=== PATIENT | male | born 1950 | race Caucasian/White ===

== ENCOUNTER 2016-08-19 07:51 | Emergency (ER) | payer OTHER, MEDICARE ==
[~2016-08-19] VITALS: Ht 180.3 cm; Wt 133.8 kg
[~2016-08-19 07:51] MED LIST: ACTOS15 MG PO; ADVIL200 MG PO; AMARYL4 MG PO; ASPIRIN EC325 MG PO; BYDUREON2 MG SC; COUMADIN5 M2 PO; DIOVAN 160 MG160 MG PO; DULOXETINE30 MG PO; GABAPENTIN300 M2 PO; GLUMETZA500 MG PO; HUMALOG 100U100 U/ML SC; IRON SUPPLEMEN325 MG PO; LANTUS INS100 UNITS/ SC; LANTUS100 U/ML SC; LEVOTHYROXINE0.15 MG PO; METFORMIN500 MG PO; NEURONTIN300 MG PO; OMEPRAZOLE DR20 MG PO; PERCOCET 5-3251 EACH PO; SYMBICORT 80/4.1 PUF INH; SYNTHROID112 MCG PO; VENTOLIN1 PUF INH; VITAMIN D50000 IU PO; XANAX1 MG PO
--- NOTE | 2016-08-19 08:26 | ED GENERAL ADULT ---
History of Present Illness General Chief Complaint: General Adult Stated Complaint: BIBA LEG EDEMA, WEAKNESS Source: patient, old records Exam Limitations: poor historian Vital Signs & Intake/Output Vital Signs & Intake/Output Vital Signs Date Time Temp Pulse Resp B/P B/P Pulse O2 O2 Flow FiO2 Mean Ox Delivery Rate 08/19 1133 98.2 88 19 112/68 98 Room Air 08/19 1044 Room Air 08/19 0802 97.6 87 18 101/65 100 Room Air Allergies Coded Allergies: NO KNOWN ALLERGIES (11/02/15) Reconcile Medications Gabapentin 300 MG CAPSULE 1 CAP PO TID NERVE PAIN (Reported) Levothyroxine Sodium (Synthroid) 112 MCG TABLET 1 TAB PO DAILY THYROID ( Reported) Warfarin Sodium (Coumadin) 5 MG TABLET 1 TAB PO DAILY anticoagulation INR goal 2-3 Triage Note: PT BIBA FOR WORSENING BILATERAL LEG SWELLING AND GENERAL WEAKNESS X 2 WEEKS. PT APPEARS JAUNDICE IN TRIAGE, DENIES CP, SOB. LEGS WEEPING IN TRIAGE, BANDAGE PLACED. Triage Nurses Notes Reviewed? yes Onset: Abrupt Duration: week(s):, constant, getting worse Timing: recent history Injury Environment: home No Modifying Factors: none HPI: 66-year-old male with a history of noncompliance comes into emergency room for evaluation of leg swelling bilaterally that been getting progressively worse over the past 2 weeks. He denies any chest pain shortness of breath. Patient reports that he is supposedly a procedure on his abdomen tomorrow by Dr. guerin. Patient reports she's had increased weakness. The swelling is getting worse. He reports that he comes in because he can no longer tolerate it. Denies any alcohol or drug use. Patient is followed up with Dr. Sanford in the past. Denies any other associated symptoms. (BLAKE PATRICK) Past History Travel History Traveled to [place] past 21 day No Medical History Any Pertinent Medical History? 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 History of MRSA: No History of VRE: No History of CDIFF: No Pneumonia Vaccine: 07/16/15 Influenza Vaccine: 12/24/08 Surgical History Surgical History: LEFT ROTATOR CUFF GASTRIC BYPASS, CHOLECYSTECTOMY Psychosocial History Who do you live with Patient/Self Services at Home None What is your primary language South Sudanese Tobacco Use: Never used ETOH Use: alcoholic Illicit Drug Use: denies illicit drug use Family History Family History, If Any: FATHER FH: myocardial infarction Hx Contributory? No (BLAKE PATRICK) Review of Systems Review of Systems Constitutional: Reports: no symptoms. EENTM: Reports: no symptoms. Respiratory: Reports: no symptoms. Cardiovascular: Reports: no symptoms. GI: Reports: no symptoms. Genitourinary: Reports: no symptoms. Musculoskeletal: Reports: see HPI. Skin: Reports: see HPI. Neurological/Psychological: Reports: no symptoms. Hematologic/Endocrine: Reports: no symptoms. Immunologic/Allergic: Reports: no symptoms. All Other Systems: Reviewed and Negative (BLAKE PATRICK) Physical Exam Physical Exam General Appearance: well developed/nourished, no apparent distress, alert, awake Head: atraumatic, normal appearance Eyes: Bilateral: normal appearance. Ears, Nose, Throat: normal ENT inspection, hearing grossly normal Neck: normal inspection Respiratory: no respiratory distress Cardiovascular: regular rate/rhythm Gastrointestinal: soft Back: normal range of motion Extremities: 3+ pitting edema Neurologic/Psych: awake, alert, oriented x 3 Skin: jaundice Core Measures ACS in differential dx? No CVA/TIA Diagnosis: No Severe Sepsis Present: No Septic Shock Present: No (BLAKE PATRICK) Progress Differential Diagnoses I considered the following diagnoses in my evaluation of the patient: Liver cirrhosis, renal failure, hypoalbuminemia, CHF, DVT, cellulitis, venous stasis, Plan of Care: Orders Procedure Date/time Status Add-on Test (ER Only) 08/19 1034 Active HEPATITIS PANEL 08/19 0850 Complete Add-on Test (ER Only) 08/19 0848 Active TROPONIN LEVEL 08/19 0832 Complete PARTIAL THROMBOPLASTIN TIME 08/19 0832 Complete PROTHROMBIN TIME 08/19 0832 Complete MAGNESIUM 08/19 0832 Complete FOLIC ACID 08/19 0832 Complete DIRECT BILIRUBIN 06/20 0832 Complete COMPREHENSIVE METABOLIC PANEL 08/20 831 Complete CBC WITHOUT DIFFERENTIAL 08/20 831 Complete B-TYPE NATRIURETIC PEP (BNP) 08/20 831 Complete VITAMIN B12 08/20 831 Complete EKG 08/20 831 Active Laboratory Tests 08/19/16 0850: Anion Gap 6, Estimated GFR > 60, BUN/Creatinine Ratio 12.2, Glucose 79, Calcium 7.8 L, Magnesium 1.8, Total Bilirubin 4.8 H, Direct Bilirubin 1.8 H, AST 61 H, ALT 30, Alkaline Phosphatase 109, Troponin I < 0.01, Fyx-Y-Ulpqcphstad Pept 746 H, Total Protein 6.1 L, Albumin 2.1 L, Globulin 4.0, Albumin/Globulin Ratio 0.5 L, Vitamin B12 > 1000 H, Folate 1.6 L, PT 20.9 H, INR 2.00 H, APTT 43 H, CBC w Diff NO MAN DIFF REQ, RBC 3.03 L, MCV 110.2 H, MCH 36.9 H, RDW 19.0 H, MPV 8.1, Gran % 82.4 H, Lymphocytes % 11.8 L, Monocytes % 5.0, Eosinophils % 0.5, Basophils % 0.3, Absolute Granulocytes 6.3, Absolute Lymphocytes 0.9 L, Absolute Monocytes 0.4, Absolute Eosinophils 0, Absolute Basophils 0, PUBS MCHC 33.5, Hepatitis A IgM Ab NONREACTIVE, Hep Bs Antigen NONREACTIVE, Hep B Core IgM Ab Conf NONREACTIVE, Hepatitis C Antibody NONREACTIVE 08/19/1632: Urine Color Cancelled, Urine Clarity Cancelled, Urine pH Cancelled, Ur Specific [place] Cancelled, Urine Protein Cancelled, Urine Ketones Cancelled, Urine Nitrite Cancelled, Urine Bilirubin Cancelled, Urine Urobilinogen Cancelled, Ur Leukocyte Esterase Cancelled, Ur Microscopic Cancelled, Urine Hemoglobin Cancelled, Urine Glucose Cancelled Initial ED EKG: normal intervals, normal p-waves, normal sinus rhythm, rate (77) , borderline qtc prolongation (BLAKE PATRICK) Departure Departure Disposition: HOME OR SELF CARE Condition: Stable Clinical Impression Primary Impression: General weakness Secondary Impressions: Dependent edema, Elevated liver function tests Referrals: JEREMY HANNA MD (PCP/Family) Additional Instructions: You have declined admission to the hospital at this time. Follow-up with your vascular surgeon tomorrow. Follow-up with her mechanical reliability engineer. Home health aide is being set up. Return if any other concerns worsening symptoms. Take your medications as they are prescribed.. Please go over all results of today's visit with your primary care doctor. Contact your primary care doctor to let them know you were here in the emergency room. There may be nonspecific findings which may not be related to your visit today here in the emergency room but may require further evaluation and chronic monitoring by your primary care doctor. If you had a laceration today the chance of foreign body always remains. You should follow-up with your primary care doctor for recheck in 3-5 days for a wound check. If you had an x-ray done there is a chance that a fracture could have been missed on initial read and you should follow-up with your primary care doctor for repeat x-rays if symptoms persist. If your blood pressure was elevated here in the emergency room please have rechecked by her primary care doctor within the next 48 hours by your primary care doctor. If you were prescribed a narcotic here in the emergency room or any type of controlled substances you're not allowed to drive while taking this medication or operate any type of heavy machinery. Narcotics can make you feel lightheaded dizziness nausea and can cause constipation. You may need to corn picker a stool softener. Thank you for choosing [facility] emergency room. Please return to the emergency room immediately if you have any other concerns worsening of symptoms. Departure Forms: Customer Survey General Discharge Information Comments 08/19/2016 1:42:24 PM Patient clinically looks well. In no apparent distress. Nontoxic appearing. He is alert and oriented and able to make his own medical decisions. He declined admission to the hospital. He wants to go home. He reports he has people to help him at home get around. He reports he is able to use the walker at home. Patient needs to comply and follow-up as an outpatient. He needs to take his medications as prescribed. Return if any other concerns worsening symptoms. Patient understands and agrees with plan of care. (BLAKE PATRICK) PA/AOC DIRECTOR COMBAT PLANS OFFICER Co-Sign Statement Statement: ED Attending supervision documentation- [X] I saw and evaluated the patient. I have also reviewed all the pertinent lab results and diagnostic results. I agree with the findings and the plan of care as documented in the PA's/AOC DIRECTOR COMBAT PLANS OFFICER's documentation. [X] I have reviewed the ED Record and agree with the PA's/AOC DIRECTOR COMBAT PLANS OFFICER's documentation. [] Additions or exceptions (if any) to the PAs/AOC DIRECTOR COMBAT PLANS OFFICER's note and plan are summarized below: [] (LESTER BERNARD,ENRIQUE) Critical Care Note Critical Care Note Critical Care Time: non-applicable (BLAKE PATRICK)
[2016-08-19 09:17] LABS: ABSOLUTE BASOPHIL COUNT 0 /CUMM (0.0-0.2); ABSOLUTE EOSINOPHIL COUNT 0 /CUMM (0.0-0.7); ABSOLUTE GRANULOCYTE CT 6.3 /CUMM (1.4-6.5); ABSOLUTE LYMPH COUNT 0.9 /CUMM (1.2-3.4); ABSOLUTE MONOCYTE COUNT 0.4 /CUMM (0.10-0.60); BASOPHIL % 0.3 % (0.0-2.0); EOSINOPHIL % 0.5 % (0-5); GRANULOCYTE % 82.4 % (42.2-75.2); HEMATOCRIT 33.3 % (42-52); MEAN CORPUSCULAR HGB 36.9 PG (27.0-31.0); MEAN CORPUSCULAR HGB CONC 33.5 G/DL (33.0-37.0); MEAN CORPUSCULAR VOLUME 110.2 FL (80.0-94.0); MEAN PLATELET VOLUME 8.1 FL (7.4-10.4); PLATELET COUNT 144 /CUMM (130-400); RED BLOOD CELL CT 3.03 /CUMM (4.70-6.10); WHITE BLOOD CELL COUNT 7.7 /CUMM (4.8-10.8)
[2016-08-19 09:24] LABS: PT 20.9 SEC (9.4-12.5); PTT 43 SEC (25-37)
[2016-08-19 11:33] VITALS: BP 112/68
== END 2016-08-19 12:43 ==
LOC: ERH 07:51
PROVIDERS: Physician Assistant Medical
DX: R53.1 Weakness (principal); R60.0 Localized edema; R79.89 Other specified abnormal findings of blood chemistry; D64.9 Anemia, unspecified
CPT/HCPCS: 93005; 93010

== ENCOUNTER 2016-08-27 15:47 | Inpatient (IN) | payer OTHER, MEDICARE ==
[~2016-08-27] VITALS: Ht 180.3 cm; Wt 112.5 kg
[2016-08-27] MEDS ORDERED: TRAZODONE HCL50 M1 PO (16:04)
[2016-08-27] MEDS ORDERED: TAMSULOSIN HCL0.4 M1 PO (16:05)
[2016-08-27] MEDS ORDERED: FINASTERIDE5 M1 PO (16:05)
[2016-08-27] MEDS ORDERED: LEVOTHYROXINE100 MC1 PO (16:06)
[2016-08-27] MEDS ORDERED: SPIRONOLACTONE100 M1 PO (16:06)
[2016-08-27] MEDS ORDERED: FUROSEMIDE40 M1 PO (16:07)
[2016-08-27] MEDS ORDERED: ASPIRIN EC81 M1 PO (16:07)
[2016-08-27] MEDS ORDERED: DULOXETINE HCL30 MG PO (16:07)
--- NOTE | 2016-08-27 16:09 | NUR ---
66 YEAR OLD MALE TO ER VIA AMBULANCE WITH COMPLAINTS OF INCREASED WEAKNESS AND INCONTINENCE OVER THE PAST COUPLE OF WEEKS. ON ARRIVAL PT ALERT AND ORIENTED, DENIES CP/SOB, NSR ON MONITOR WITH HR 68, O2 SAT 98 % ON RA. PT STATES THAT HE HAS VASCULAR PROBLEMS AND THAT HE HS BEEN HAVING INCREASED WEAKNESS THE PAST COUPLE OF THE DAYS AND IS UNABLE TO WALK AROUND, STATES THAT HE LIVES ON OWN AND USUALLY CAN GET AROUND WITH WALKER. WHEN QUESTIONED ABOUT INCONTINENCE , " SATED THAT IF THE AIDE DOESN'T LEAVE MY URINAL NEAR ME I CAN'T GET TO IT ON TIME. PT NOTED WITH TOILET PAPER STUFFED IN HIS UNDER PANTS THAT WAS SATURATED WITH URINE. ALSO COMPLAINS OF SORE TO HIS BOTTOM. PT NOTED WITH DIME SIZE OPEN AREA TO L BUTTOCKS, GROIN NOTED TO BE SLIGHTLY RED. BLE NOYED WITH + 4 PITTING EDEMA AND REDNESS AND SLIGHT WARMTH. WHEN THIS NURSE TRYING TO ASSESS PT , PT BECOMES UPSET AND STATES THAT HE IS TIRED OF ALL THE SAME QUESTIONS. PT ALSO NOTED WITH HEALING SCRATCH TO RLE.
--- NOTE | 2016-08-27 16:33 | ED GENERAL ADULT ---
History of Present Illness General Chief Complaint: General Adult Stated Complaint: increased weakness/inc Source: patient Exam Limitations: no limitations Vital Signs & Intake/Output Vital Signs & Intake/Output Vital Signs Date Time Temp Pulse Resp B/P B/P Pulse O2 O2 Flow FiO2 Mean Ox Delivery Rate 08/27 1740 97.9 66 18 149/78 98 Room Air 08/27 1619 98 Room Air 08/27 1603 97.9 64 18 158/82 98 Room Air Allergies Coded Allergies: NO KNOWN ALLERGIES (11/02/15) Reconcile Medications Aspirin (Ecotrin*) 81 MG TABLET.DR 1 TAB PO DAILY HEART/BLOOD (Reported) Duloxetine HCl 30 MG CAPSULE.DR 1 CAP PO DAILY MENTAL HEALTH (Reported) Finasteride 5 MG TABLET 1 TAB PO DAILY (Reported) Furosemide (Unknown Strength) TABLET (Unknown Dose) PO DAILY UNKNOWN ( Reported) Gabapentin 300 MG CAPSULE 1 CAP PO TID NERVE PAIN (Reported) Levothyroxine Sodium 100 MCG TABLET 1 TAB PO DAILY THYROID (Reported) Spironolactone 100 MG TABLET 1 TAB PO DAILY DIURETIC (Reported) Tamsulosin HCl 0.4 MG CAP.ER.24H 1 CAP PO DAILY (Reported) Trazodone HCl 50 MG TABLET 1-2 TAB PO QPM PRN SLEEP (Reported) Triage Note: 66 YEAR OLD MALE TO ER VIA AMBULANCE WITH COMPLAINTS OF INCREASED WEAKNESS AND INCONTINENCE OVER THE PAST COUPLE OF WEEKS. ON ARRIVAL PT ALERT AND ORIENTED, DENIES CP/SOB, NSR ON MONITOR WITH HR 68, O2 SAT 98 % ON RA. PT STATES THAT HE HAS VASCULAR PROBLEMS AND THAT HE HS BEEN HAVING INCREASED WEAKNESS THE PAST COUPLE OF THE DAYS AND IS UNABLE TO WALK AROUND, STATES THAT HE LIVES ON OWN AND USUALLY CAN GET AROUND WITH WALKER. WHEN QUESTIONED ABOUT INCONTINENCE , " SATED THAT IF THE AIDE DOESN'T LEAVE MY URINAL NEAR ME I CAN'T GET TO IT ON TIME. PT NOTED WITH TOILET PAPER STUFFED IN HIS UNDER PANTS THAT WAS SATURATED WITH URINE. ALSO COMPLAINS OF SORE TO HIS BOTTOM. PT NOTED WITH DIME SIZE OPEN AREA TO L BUTTOCKS, GROIN NOTED TO BE SLIGHTLY RED. BLE NOYED WITH + 4 PITTING EDEMA AND REDNESS AND SLIGHT WARMTH. WHEN THIS NURSE TRYING TO ASSESS PT , PT BECOMES UPSET AND STATES THAT HE IS TIRED OF ALL THE SAME QUESTIONS. PT ALSO NOTED WITH HEALING SCRATCH TO RLE. Triage Nurses Notes Reviewed? yes HPI: 66-year-old male with a history of hypertension, hypothyroid, peripheral vascular disease, status post stent placement to lower extremity vessels 1.5 weeks ago, presenting with generalized weakness and inability to ambulate. States that baseline he is normally able to ambulate with a walker, but has been unable to return to his baseline ambulation since the procedure for stent placement in his lower extremities. Patient denies fevers, URI symptoms, cough, sputum, chest pain, shortness of breath, abdominal pain, nausea, vomiting, diarrhea, dysuria. He endorses urinary incontinence secondary to being unable to ambulate to the bathroom, and that his visiting nurse will frequently forgets with a urinal close to him. (SEBAS MICHEL PA-C) Past History Medical History Any Pertinent Medical History? see below for history Neurological: NONE EENT: NONE Cardiovascular: NONE Respiratory: NONE Gastrointestinal: HX CHOLECYSTECTOMY Hepatic: cirrhosis Renal: NONE Musculoskeletal: disk herniation, osteoarthritis Psychiatric: NONE Endocrine: NONE Blood Disorders: anemia Cancer(s): NONE INSPECTOR WEIGHTS AND MEASURES/Reproductive: NONE Other Medical Hx: diabetes (resolved post gastric bypass), hypothyroid, hypertension, obstructive sleep apnea, Vitamin D deficiency, DJD post right total knee replacement 11/12/2015, obesity, and aortic stenosis, nonalcoholic fatty liver, history of gastrointestinal tract bypass 10/2013, diverticulosis coli. History of MRSA: No History of VRE: No History of CDIFF: No Surgical History Surgical History: LEFT ROTATOR CUFF GASTRIC BYPASS, CHOLECYSTECTOMY Psychosocial History Who do you live with Patient/Self Services at Home None What is your primary language Trinidadian Family History Family History, If Any: FATHER FH: myocardial infarction Hx Contributory? No (SEBAS MICHEL PA-C) Review of Systems Review of Systems Constitutional: Reports: weakness. Denies: chills, diaphoresis, fever, malaise. Respiratory: Reports: no symptoms. Cardiovascular: Reports: no symptoms. GI: Reports: no symptoms. Genitourinary: Reports: no symptoms. Musculoskeletal: Reports: no symptoms. Skin: Reports: no symptoms. Neurological/Psychological: Reports: weakness. Denies: headache, numbness, paresthesia, tingling, tremors. (SEBAS MICHEL PA-C) Physical Exam Physical Exam General Appearance: well developed/nourished, no apparent distress, alert, awake , comfortable Head: atraumatic Ears, Nose, Throat: normal ENT inspection Respiratory: normal breath sounds, lungs clear Cardiovascular: regular rate/rhythm, normal peripheral pulses Gastrointestinal: normal bowel sounds, soft, non-tender Extremities: exam there is bilateral lower extremity 4+ edema with trace distal erythema, no increased warmth. Neurologic/Psych: no motor/sensory deficits, awake, alert, oriented x 3, normal mood/affect, fire manager II-XII nml as tested, cerebellar function intact with normal mofjlc-bd-dpad exam Skin: intact, normal color, warm/dry Core Measures ACS in differential dx? No CVA/TIA Diagnosis: No Severe Sepsis Present: No Septic Shock Present: No (ANAND BROWN,SEBAS) Progress Differential Diagnoses I considered the following diagnoses in my evaluation of the patient: [DVT versus cellulitis versus post operative deconditioning. Weakness ddx: Acute coronary syndrome versus electrolyte abnormality versus UTI versus anemia versus infection. ] Plan of Care: Orders Procedure Date/time Status Heart Healthy Diet 08/28 B Active Teach/Educate 08/28 2115 Active Pain Treatment and Response 08/28 2115 Active Nutritional Intake, Monitor 08/28 2115 Active Isolation 08/28 2115 Active Patient Care Conference 08/28 2115 Active Activity/Ambulation 08/28 2115 Active Patient Data 08/27 195 Active ED Holding Orders 08/27 1859 Active Admit to inpatient 08/27 1859 Active Vital Signs 08/27 1859 Active Code Status 08/27 1859 Active Add-on Test (ER Only) 08/27 1721 Active Skin/Pressure Ulcer Assess (Sk 08/27 1647 Active TROPONIN LEVEL 08/27 1645 Complete CULTURE,URINE 08/27 1620 Active URINALYSIS 08/27 1620 Complete COMPREHENSIVE METABOLIC PANEL 08/27 1620 Complete CBC WITHOUT DIFFERENTIAL 08/27 1620 Complete EKG 08/27 1620 Active Intake & Output 08/27 1618 Active Current Medications Sig/Trever Start time Last Medication Dose Stop Time Status Admin Aspirin Buffered 81 MG DAILY 08/28 1000 AC (Ecotrin) Duloxetine HCl 30 MG DAILY 08/28 1000 AC (Cymbalta) Levothyroxine Sodium 0.1 MG DAILY AC 08/28 0700 AC (Synthroid) Gabapentin 300 MG TID 08/27 2200 AC (Neurontin) Trazodone HCl 25 MG QPM PRN 08/27 2114 AC (Desyrel) Tamsulosin HCl 0.4 MG DAILY 08/27 2102 AC (Flomax) Finasteride 5 MG DAILY 08/27 2101 AC (Proscar) Potassium Chloride 40 MEQ ONCE ONE 08/27 1814 CAN (K-Dur) 08/28 1815 Sodium Chloride 1,000 ML BOLUS ONE 08/27 1814 CAN (Normal Saline 0.9%) 08/27 1913 Laboratory Tests 08/27/16 1735: Urinalysis LIGHT H, Urine Color GIANNA, Urine Clarity CLEAR, Urine pH 6.0, Ur Specific [place] 1.010, Urine Protein TRACE H, Urine Ketones TRACE H, Urine Nitrite NEG, Urine Bilirubin NEG@ICTO, Urine Urobilinogen >=8.0 H, Ur Leukocyte Esterase NEG, Ur Microscopic SEDIMENT EXAMINED, Urine RBC RARE, Urine WBC RARE, Ur Epithelial Cells OCCAS, Urine Bacteria RARE H, Hyaline Casts RARE H, Granular Casts RARE H, Urine Mucus RARE, Micro UA Comment , Urine Hemoglobin NEG, Urine Glucose NEG 08/27/16 1645: Anion Gap 7, Estimated GFR > 60, BUN/Creatinine Ratio 18.3, Glucose 68, Calcium 7.5 L, Total Bilirubin 2.5 H, AST 57, ALT 28, Alkaline Phosphatase 92, Troponin I < 0.01, Total Protein 5.9 L, Albumin 2.1 L, Globulin 3.8, Albumin/ Globulin Ratio 0.6 L, CBC w Diff NO MAN DIFF REQ, RBC 2.94 L, MCV 108.4 H, MCH 37.0 H, RDW 18.6 H, MPV 7.8, Gran % 65.3, Lymphocytes % 26.3, Monocytes % 5.8, Eosinophils % 1.6, Basophils % 1.0, Absolute Granulocytes 2.5, Absolute Lymphocytes 1.0 L, Absolute Monocytes 0.2, Absolute Eosinophils 0.1, Absolute Basophils 0, PUBS MCHC 34.1 Microbiology 08/27 1734 URINE ROUT: Urine Culture - RECD EKG shows new changes with a junctional rhythm, prior EKG 8 days ago showed normal sinus rhythm. Remarkable for hyponatremia to 128 and hypokalemia at 2.9. There is concern that these electrolyte abnormalities may be contributing to the patient's new EKG changes. She will be admitted to telemetry for electrolyte repletion, serial electrolyte monitoring, and further evaluation of his EKG changes. Spoke to patient's vascular surgeon who reported the patient had bilateral lower extremity venous stents placed in his office. Venous duplex of the bilateral lower extremities was unremarkable. Care critical patient aware of patient and will evaluate for discharge to short- term rehabilitation after the patient's hospital stay as he is currently below his baseline functioning status. The patient is unable to ambulate and carry out activities of daily living including ambulating to the bathroom for urination and bowel movements. This has led to forced urinary incontinence leading to skin ulcers on the patient's buttocks secondary to sitting in urine for multiple days. Patient has a small stage II ulcer to the left buttock on exam. (SEBAS MICHEL PA-C) Initial ED EKG: junctional rhythm with rate 67 (SEBAS MICHEL PA-C) Departure Departure Disposition: STILL A PATIENT Condition: Stable Clinical Impression Primary Impression: Weakness Secondary Impressions: Acute electrocardiogram changes, Bilateral lower extremity edema, Hypokalemia, Hyponatremia Referrals: JEREMY HANNA MD (PCP/Family) Departure Forms: Customer Survey General Discharge Information (SEBAS MICHEL PA-C) PA/LEATHER ROLLER Co-Sign Statement Statement: ED Attending supervision documentation- [x] I saw and evaluated the patient. I have also reviewed all the pertinent lab results and diagnostic results. I agree with the findings and the plan of care as documented in the PA's/LEATHER ROLLER's documentation. [x] I have reviewed the ED Record and agree with the PA's/LEATHER ROLLER's documentation. [] Additions or exceptions (if any) to the PAs/LEATHER ROLLER's note and plan are summarized below: [] (LESTER BERNARD,ENRIQUE) Critical Care Note Critical Care Note Critical Care Time: non-applicable (SEBAS MICHEL PA-C) ED Attending Observation Initial Observation Note: I have seen and personally examined DIANN HARRINGTON on 08/27/16 at 2103. I agree with the current emergency department documentation. The disposition (admission or discharge) is uncertain at this time, he needs a period of observation for the following reason(s): The ED Nurse caring for this patient has been personally informed as to what the patient is being observed for. (SEBAS MICHEL PA-C)
--- NOTE | 2016-08-27 17:11 | NUR ---
PT RESTING QUIETLY IN ROOM. IV INSERTION TO R FOREARM 22G. LABS DRAWN. EKG DONE BY MST. VSS. PT GIVEN EXTRA BLANKETS PER REQ. PT TBA. AWAITING FURTHER ORDERS. NAD NOTED. VSS.
[2016-08-27 17:16] LABS: ABSOLUTE BASOPHIL COUNT 0 /CUMM (0.0-0.2); ABSOLUTE EOSINOPHIL COUNT 0.1 /CUMM (0.0-0.7); ABSOLUTE GRANULOCYTE CT 2.5 /CUMM (1.4-6.5); ABSOLUTE MONOCYTE COUNT 0.2 /CUMM (0.10-0.60); EOSINOPHIL % 1.6 % (0-5); GRANULOCYTE % 65.3 % (42.2-75.2); HEMATOCRIT 31.9 % (42-52); MEAN CORPUSCULAR HGB CONC 34.1 G/DL (33.0-37.0); MEAN PLATELET VOLUME 7.8 FL (7.4-10.4); PLATELET COUNT 151 /CUMM (130-400); RBC DISTRIBUTION WIDTH 18.6 % (11.5-14.5); RED BLOOD CELL CT 2.94 /CUMM (4.70-6.10); WHITE BLOOD CELL COUNT 3.8 /CUMM (4.8-10.8)
[2016-08-27 17:33] LABS: MEAN CORPUSCULAR VOLUME 108.4 FL (80.0-94.0)
--- NOTE | 2016-08-27 17:49 | NUR ---
PT MEDICATED AT THIS TIME WOTH MORPHINE 5 MG IV FOR 8/10 BLE PAIN. PT TO US VIA STRETCHER
--- NOTE | 2016-08-27 17:54 | NUR ---
CRITICAL TEST RESULTS [id number] DIANN HARRINGTON 66 M TESTS AND RESULTS: K+ 2.9 Results received and read back by: CEDRIC ARIZA Results received date and time: 08/27/161753 The following provider was notified of the results, and read the results back: SEBAS MICHEL Notified date and time: 08/27/16 at 1759
--- NOTE | 2016-08-27 19:08 | ULTRASOUND REPORT ---
EXAMINATION: US TRIPLEX OF LOWER EXTREMITIES, BILATERAL CLINICAL INFORMATION: Edema. COMPARISON: None TECHNIQUE: Color-flow triplex imaging with spectral analysis and compression Doppler were performed on the lower extremities. FINDINGS: Exam limited by body habitus. Patient is a bandage over the right groin region. Respiratory variation, normal compression and augmented flow are noted throughout the lower extremities. The visualized common femoral vein, superficial femoral vein, profunda femoral vein, popliteal vein and midcalf peroneal and posterior tibial venous segments show no evidence of deep venous thrombosis. Popliteal fossa cyst on the left measuring 4.5 x 1.0 x 2.6 cm. No popliteal cyst on the right. IMPRESSION: Normal triplex scan without evidence of deep venous thrombosis involving the lower extremities.
--- NOTE | 2016-08-27 20:02 | NUR ---
PT RESTING QUIETLY IN ROOM. PT GIVEN 480CC PO WITH DINNER AND FURNACE OPERATOR AND TENDER. PT VSS AT THIS TIME. NAD NOTED. AWAITING ADMISSION BED ASSIGNMENT.
--- NOTE | 2016-08-27 20:23 | NUR ---
PT TO ROOM 179 BED 1
--- NOTE | 2016-08-27 20:30 | NUR ---
REPORT GIVEN TO LEONIDES TESFAYE
--- NOTE | 2016-08-27 21:18 | History & Physical ---
ROSMERY HENSON 08/27/168: General Information and HPI MD Statement: I have seen and personally examined DIANN HARRINGTON and documented this H&P. The patient is a 66 year old M who presented with a patient stated chief complaint of []. Source of Information: patient, old records Exam Limitations: no limitations History of Present Illness: Mr Harrington is a 66-year-old man who was known to be in his usual state of health until a few months ago. He has a past medical history of hypertension, hyperlipidemia, peripheral vascular disease (status post stent placements), gastric bypass surgery (dx'ed 2013), anemia. Came to [facility] with chief concerns of generalized weakness, weakness of upper and lower extremities, inability to ambulate 1 week. As for the patient, he had increasing weakness in the last few months, and underwent stent placement for peripheral vascular disease approximately 2 weeks ago. In the last 1 week, he had increasing generalized weakness, more so in upper and lower extremities, resulted in inability to ambulate; which resulted in a fall night prior to the presentation to the ED. Also reports pain in bilateral lower extremities severity 7/10, with no radiation. Also reported tingling sensation in bilateral lower extremities. Noticed redness in lower extremities, and had an injury when he was getting out of his car. Reported decreased by mouth intake in the last few weeks. No fever, myalgias, cough. No chest pain, palpitations, shortness of breath at rest. Reports lower than usual activity in the last few months overall. No nausea, vomiting or diarrhea. Reports use of alcohol, approximately bottle of wine every day. Nonsmoker and no IVDA. No dietary restrictions after his gastric bypass surgery. Walks using a rolling walker. Allergies/Medications Allergies: Coded Allergies: NO KNOWN ALLERGIES (11/02/15) Home Med list Aspirin (Ecotrin*) 81 MG TABLET.DR 1 TAB PO DAILY HEART/BLOOD (Reported) Duloxetine HCl 30 MG CAPSULE.DR 1 CAP PO DAILY MENTAL HEALTH (Reported) Finasteride 5 MG TABLET 1 TAB PO DAILY (Reported) Furosemide (Unknown Strength) TABLET (Unknown Dose) PO DAILY UNKNOWN ( Reported) Gabapentin 300 MG CAPSULE 1 CAP PO TID NERVE PAIN (Reported) Levothyroxine Sodium 100 MCG TABLET 1 TAB PO DAILY THYROID (Reported) Spironolactone 100 MG TABLET 1 TAB PO DAILY DIURETIC (Reported) Tamsulosin HCl 0.4 MG CAP.ER.24H 1 CAP PO DAILY (Reported) Trazodone HCl 50 MG TABLET 1-2 TAB PO QPM PRN SLEEP (Reported) Compliance With Home Meds: UNKNOWN Past History Travel History Traveled to [place] past 21 day No Medical History Neurological: NONE EENT: NONE Cardiovascular: NONE Respiratory: NONE Gastrointestinal: HX CHOLECYSTECTOMY Hepatic: jaundice Renal: NONE Musculoskeletal: disk herniation, osteoarthritis Psychiatric: NONE Endocrine: NONE Blood Disorders: anemia Cancer(s): NONE 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 nonalcoholic fatty liver, history of gastrointestinal tract bypass 10/2013, diverticulosis coli. History of MRSA: No History of VRE: No History of CDIFF: No Isolation History: Standard Surgical History Surgical History: LEFT ROTATOR CUFF GASTRIC BYPASS, CHOLECYSTECTOMY Past Family/Social History Family History Relations & Conditions if any FATHER FH: myocardial infarction Psychosocial History Services at Home: None ETOH Use: denies use Illicit Drug Use: denies illicit drug use Functional Ability ADLs Independent: dressing, eating, toileting, bathing. Ambulation: walker IADLs Needs Assist: food prep, transportation, medication admin. Unknown: shopping, housework, finances, telephone. Review of Systems Review of Systems Constitutional: Reports: see HPI, weakness. Denies: chills, fever. EENTM: Denies: blurred vision, double vision. Cardiovascular: Reports: peripheral edema. Denies: chest pain, palpitations, syncope. Respiratory: Denies: cough, orthopnea, short of breath. GI: Denies: abdominal pain, bowel incontinence, nausea. Genitourinary: Denies: dysuria, hematuria. Musculoskeletal: Denies: back pain. Skin: Denies: change in skin color. Neurological/Psychological: Denies: anxiety. Hematologic/Endocrine: Denies: bruising. Exam & Diagnostic Data Last 24 Hrs of Vital Signs/I&O Vital Signs Date Time Temp Pulse Resp B/P B/P Pulse O2 O2 Flow FiO2 Mean Ox Delivery Rate 08/27 2321 60 96/62 08/27 2303 99.0 90 20 104/68 99 Room Air 08/27 1740 97.9 66 18 149/78 98 Room Air 08/27 1619 98 Room Air 08/27 1603 97.9 64 18 158/82 98 Room Air Intake & Output 08/28 0800 08/28 0000 08/27 1600 Intake Total 0 Output Total Balance 0 Intake, Oral 0 Patient 285 lb Weight Weight Reported by Patient Measurement Method Physical Exam General Appearance Alert, Oriented X3, Cooperative, No Acute Distress Skin No Rashes Skin Temp/Moisture Exam: Warm/Dry Sepsis Skin Exam (color): Normal for Ethnicity HEENT Atraumatic, PERRLA, EOMI, Mucous Membr. moist/pink Neck Supple, No JVD, No thryomegaly, +2 Carotid Pulse wo Bruit Lymphatic Cervical nl Cardiovascular Regular Rate, Normal S1, Normal S2, systolic murmur likely aortic Lungs Clear to Auscultation, Normal Air Movement Abdomen Normal Bowel Sounds, Soft, No Tenderness, No Hepatospenomegaly Neurological Normal Speech, Normal Tone, Sensation Intact, Cranial Nerves 3-12 NL, Reflexes 2+, stength 4/5 bilateral upper and lower extremities Extremities No Clubbing, No Cyanosis, Normal Pulses, pedal edema 2+ bilaterally RLE- erythema extending from the ankle upto the knee LLE- erythema around middle of the leg. No discharge. Skin abrasion on the right leg. Vascular decreased pulses b/l Sepsis Peripheral Pulse Location: Posterior Tibialis Sepsis Peripheral Pulse Exam: Weak Body Front and Back (Adult) 1) erythema, and edema 2) erythema and edema 3) sacral ulcer stage 1 Diagnostic Data EKG Results Heart rate 68, accelerated junctional rhythm, T-wave flattening, normal axis. Other Results US - US-EXT BILAT VENOUS DOPPLER Normal triplex scan without evidence of deep venous thrombosis involving the lower extremities. Assessment/Plan Assessment: He is a middle-aged man with a past history of peripheral vascular disease, post gastric bypass surgery, anemia is being evaluated for bilateral lower extremity weakness and inability to ambulate likely from electrolyte abnormalities. At the time of admission, vitals-temperature 97.9, pulse rate 64, respiration 18 , blood pressure 158/82, pulse ox 98% on room air. Lab findings indicated WBC 3.8 (lymphopenia), hemoglobin 10.9 (baseline 11.0), platelets 151-likely from immunosuppression from alcohol use. MCV elevated to 108.4, with previous lab finding significant for decreased folate. Serum electrolytes-sodium 128 (low likely from decreased by mouth intake), potassium 2.9 (very low likely from decreased by mouth intake) and also low magnesium (1.5). Liver function test- within normal limits with AST 57, AST 28, alkaline phosphatase 92. Surprisingly , total and bilirubin was elevated to 2.5. Cardiac enzymes-troponin less than 0.01. Albumin was found to be very low at 2.1. Urinalysis revealed no pyuria, or urine leukocyte esterase. EKG revealed junctional accelerated rhythm, with T-wave flattening, normal axis. Ultrasound venous Doppler of lower extremity did not reveal any evidence for DVT. Last echocardiogram done in 2016 revealed left ventricle with ejection fraction of 65%, and right ventricle pressure of 30. Differential diagnosis: #1 hyponatremia, hypokalemia, hypomagnesemia (likely nutritional) #2 cardiac arrhythmia #3 alcohol use #4 alcoholic liver disease #5 hypothyroidism Below is the problem list and plan: #1 weakness-likely due to electrolyte abnormalities, specifically hypokalemia. EKG changes were suggestive of hypokalemia. Replete magnesium and potassium aggressively. Check BEP every 4 hours. Hypokalemia is known to cause muscle weakness. Likely cause of these electrolyte abnormalities is secondary to decreased by mouth intake, post gastric bypass malabsorption, or use of furosemide. Check vitamin B12 and folate; as folate was significantly lower during the last blood work. #2 abnormal EKG- likely due to hypokalemia, which explains the junctional rhythm and T-wave changes. Check cardiac enzymes and echocardiograms every 6 hours. Admit the patient on telemetry, and monitor closely. Conduction block is in the differential. If repletion of electrolytes do not reverse the changes, is worth checking a Lyme titer. Cardiology evaluation in the a.m. Check echocardiogram. #3 abnormal total bilirubin-likely due to hepatic steatosis, but etiology could be multifactorial including alcohol use. Unsure if the patient has a pathological diagnosis of cirrhosis already made, and if so would explain normal AST ALT with decreased albumin. Check INR to rule out any synthetic abnormality of the liver. May benefit from getting an right upper quadrant ultrasound, if any change in liver panel. Check HbA1c. #4 hypothyroidism-is also on the differential, which could cause muscle weakness , hyponatremia. Check TSH, free T4. Unsure if the patient is compliant with his medications. #5 anemia-macrocytic anemia. Previous lab work reveals decreasing folate which is clearly nutritional or due to gastric bypass. Recheck folate and vitamin B12. #5 alcohol use-CIWA protocol. Thiamine and multivitamin daily. #6 left lower extremity swelling- unclear if patient has any cellulitis. Currently watch the patient off the antibiotics. Leg vascular surgeon know that the patient is in the hospital. DVT negative. #7 DVT prophylaxis-pharmacological. #8 Sacral wound- wound care. Stage 1. As Ranked By This Provider Problem List: 1. Hypokalemia 2. Hyponatremia 3. Bilateral lower extremity edema Core Measures/Miscellaneous Acute Coronary Syndrome ACS Diagnosis: No Cerebrovascular Accident CVA/TIA Diagnosis: No Congestive Heart Failure CHF Diagnosis: No VTE (View Protocol) VTE Risk Factors: Age > [address] [facility] prophylaxis d/t: No contraindications No VTE Pharm Prophylaxis d/t: No contraindications VTE Diagnosis: No VTE Type: NONE VTE Confirmed by (Test): NONE Sepsis (View Protocol) Severe Sepsis Present: No Septic Shock Septic Shock Present: No Miscellaneous Documentation Attending Case Discussed With: ALEN QUIJANO MD Primary Care Physician: JEREMY HANNA MD Patient sees these Specialists Dr. Guerrero Level of Patient Care: Telemetry AAMIR CASE 08/27/168: Resident Review Statement Resident Statement: examined this patient, discussed with biology internship, agreed with biology internship Other Findings: Patient is 66 year old male brought from [facility] with PMH of HTN, hypothyroidism, gastric bypass surgery, PVD s/p ballooning of left lower ext and stent placement in right lower extremety [address] Reddy, came with chief complain of b/l lower extremety weakness and fall. Patient states that after his procedure 2 weeks ago, he was doing well until one week ago when he started experiencing weakness in his bilateral lower extremity. Patient also reports of pain in bilateral lower extremities since same duration. Patient normally uses a rolling walker to walk but states that since past 1 week he has been having numbness and tingling in bilateral lower extremity and has been very wobbly with a rolling walker. The pain is 7/10 in bilateral lower extremity. Patient states that at home his legs were wrapped because they were oozing fluid. Patient has a visiting nurse to help him with medication and wound care. Patient's friend, Paul helps him at home with cooking and getting him the stuff. Patient reports low appetite. Patient denies any fever/chills/chest pain/difficulty breathing/headache/ dizziness. Patient reports that since his gastric bypass surgery 4 years ago, he has lost approximately 200 pounds. Patient also admits to drinking 1 bottle of alcohol per day but quit one month ago without any side effects. Patient follows Dr. Guerrero as his venetian blind cleaner and repairer and was seen last time by him 1.5 months ago. Labs and vitals as above Ultrasound Doppler b/llower ext done in ER negative for any DVT Assessment and plan Will admit the patient on telemetry floor for continuous monitoring Patient is hypokalemic on admission with fashion of 2.9, will supplement Will trend troponins and EKG every 6 hours and consider cardiac consult in a.m. Patient seems to be having a junctional rhythm on his EKG unsure if it's new. No previous EKG to compare with. Will start patient on CIWA scale for alcohol withdrawal Patient has elevated total bili of 2.5, will get ultrasound abdomen to look at liver morphology and biliary tree. Will also will check his INR Will check his TSH, fasting lipid panel, proBNP Patient has elevated MCV of 108, will supplement him B12 and folic acid Hyponatremia of 128 from 131 on 08/19. Could be dilutional. We'll continue to monitor for now If patient spikes a fever, will obtain BC x 2 and consider antibiotics for b/l lower extremety possible cellulitis Please inform Dr. Reddy of the admission. Consider echocardiogram since patient seems to be retaining fluid. Previous echo available from last year shows stage I diastolic dysfunction with ejection fraction estimated to be 65% DVT ppx SC lovenox Patient is DNR/DNI SAMM,AARTECleo 08/28/16 0342: Attending MD Review Statement Attending Statement Attending MD Statement: examined this patient, discuss w/resident/PA/RETAIL SOLAR ADVISOR, agreed w/resident/PA/RETAIL SOLAR ADVISOR, reviewed EMR data (avail), reviewed images, amended to note Attending Assessment/Plan: CC: Lethargy PMH: DM resolved after gastric band then gastric bypass, obesity S/P gastric bypass, HTN, PVD S/P stent 1-1/2 week back, moderate aortic stenosis, hypothyroidism Patient came to ER for generalized weakness, inability to ambulate. He had been noticing worsening bilateral lower extremity edema, pain and gait problems since a few months. Patient underwent stent placement and right lower extremity 1 and half week back, since then patient had been getting more pain and inability to ambulate at home. He fell down yesterday, accidental, no loss of consciousness, no head trauma. He has aide coming at his home every alternate day, a friend coming every day to help out on daily activities. He denies any fever, chills, upper respiratory complaints, cough, chest pain, sputum production, worsening breathing, abdominal pain, nausea vomiting, diarrhea or urinary complaints. Patient states that he has some liver injury because of his alcoholism, quit 1 month of back. Vitals: T max 99.0, HR and 60s, RR 18, blood pressure 158/82, saturating well on room air. On exam: A O 3, cooperative, no acute distress, neck supple, JVD normal, no lymphadenopathy, mucosa moist, no focal neurological deficit, strength reflexes bilateral lower extremity intact, severe dependent edema, bilateral lower extremity stasis changes, superficial laceration on godinez the right side, procedure site dressed right groin, healed scar on sacrum CVS: S1-S2, RRR, systolic murmur in aortic area. RS: Clear to auscultate bilaterally. Abdomen: Soft, NT, ND, obese, bowel sounds present. Labs: WBC 3.8, hemoglobin 10.9, hematocrit 31.9, platelet 151, MCV 108.4,, sodium 128, potassium 2.9, chloride 95, bicarbonate 25, BUN 11, creatinine 0.6, glucose 68, calcium 7.5, total bilirubin 2.5, AST 57, ALT 28, alkaline phosphatase 92, troponin less than 0.01, albumin 2.1, proBNP 481, serum osmolality 282, TSH 19, urine osmolality 458 Bilateral lower extremity venous Doppler: Normal triplex scan without evidence of deep venous thrombosis involving the lower extremities. EKG: Junctional rhythm A and P 66-year-old male with multiple comorbidities including obesity S/P gastric bypass, hypertension, hypothyroidism, peripheral vascular disease, past history of diabetes presented in ER with worsening of lethargy, bilateral lower extremity edema, inability to ambulate because of pain. On exam patient has bilateral extensive lower extremity pitting edema, distended abdomen, stasis changes bilateral lower extremity, systolic murmur in aortic area. He does not appear to have elevated JVD, lungs are clear to auscultate. He is found to have macrocytic anemia, hyponatremia, hypokalemia, bilirubin is elevated, albumin is low and junctional rhythm which is new on EKG. Patient denies any chest pain, pressure, respiratory difficulty. Patient appears to be noncompliant with his medications, is unable to provide any details. He reinforces that he is keeping away from alcohol since last 1 month. Multiple electrolyte abnormality, anemia appears secondary to malnutrition versus alcoholism. Cirrhosis should be ruled out, hyponatremia probably secondary to hypothyroidism and liver disease. Patient is denying any recent diuretic use even though he has extensive lower extremity edema. He recently underwent stent placement for right lower extremity , but does not appear to be on any antiplatelet agent except aspirin. - Macrocytic anemia - Hyponatremia - Hypokalemia - Hyperbilirubinemia - Mild nutrition - Bilateral lower extremity edema - New Junctional rhythm - Moderate aortic stenosis ` Admit to telemetry ` Continuous telemetry monitoring ` Serial EKG troponin ` BMP after 4 hours of potassium replacement ` Check magnesium, replace if low ` Check phosphorus ` Check INR,, B12, folic acid, proBNP right upper quadrant ultrasound, 2-D echo ` Wound care consult for sacral wound, cardiology consult for new junctional rhythm and suspected heart failure, history of aortic stenosis, endocrine consult for hypothyroidism, vascular consult for recent surgical procedure, persistent pain ` Post void bladder scan to rule out any retention ` DVT prophylaxis with heparin or Lovenox ` Home medications should be reconfirmed from pharmacy and addressed in a.m.
[2016-08-27 23:03] VITALS: BP 104/68
--- NOTE | 2016-08-28 03:44 | Admission Certification ---
Admission Certification Certification Statement - As attending physician, I certify that at the time of - admission, based on clinical presentation, severity of - symptoms, need for further diagnostic testing and - therapeutic interventions, and risk of adverse outcomes - without in-hospital treatment, in my clinical assessment, - this patient requires an acute hospital stay for a minimum - of two nights or longer. I have also considered psychsocial - factors such as support system, advanced age, financial - issues, cognitive issues, and failed out-patient treatments, - past re-admission history, safety of patient, and lack of - compliance as applicable. Specific rationale supporting this admission is: Severe hypokalemia, hyponatremia, EKG changes
--- NOTE | 2016-08-28 07:21 | PN- Housestaff ---
Subjective Follow-up For: Generalized Weakness History of Gastric Sleeve/Bypass Hyponatremia Hypokalemia Hypomag Hypothyroidism Lower extremity swelling Tele-Events Since Last Visit: Accelerated Junctional Rhythm HR 59-68 PVCs Subjective: Patient seen and examined. He is seen sitting upright in bed resting comfortably. He appears tired, but in no acute distress. He reports not sleeping well last night but otherwise feels no better or worse. He admits that he has no appetite. He still has found fatigue and believes his lower extremities are still just as swollen as they have been for about two weeks. He feels the redness in his legs have been present since they 'placed the bandages' on his legs after his stent / angioplasty by Dr. Reddy two weeks ago. Otherwise he denies any fever, chills, chest pain, palpitations, shortness of breath, nausea, vomiting, diarrhea. Review of Systems Constitutional: Reports: see HPI. Objective Last 24 Hrs of Vital Signs/I&O Vital Signs Date Time Temp Pulse Resp B/P B/P Pulse O2 O2 Flow FiO2 Mean Ox Delivery Rate 08/27 2321 60 96/62 08/27 2303 99.0 90 20 104/68 99 Room Air 08/27 1740 97.9 66 18 149/78 98 Room Air 08/27 1619 98 Room Air 08/27 1603 97.9 64 18 158/82 98 Room Air Intake & Output 08/28 1600 08/28 0800 08/28 0000 Intake Total 800 400 Output Total 400 Balance 400 400 Intake, IV 200 Intake, Oral 600 400 Output, Urine 400 Patient 129.274 kg Weight Weight Reported by Patient Measurement Method Physical Exam General Appearance: Alert, Oriented X3, Cooperative, No Acute Distress Other Physical Findings: General-well developed, well nourished morbidly obese elderly man in no acute distress HEENT-NCAT, PERRL, EOMI, anicteric sclera Neck-Supple, No JVD Chest-2/6 holosystolic murmur Lung-CTA Bilaterally Abdomen-Soft, mid upper abdomeninal tenderness without guarding/rigidity, obese, bowel sounds intact Neuro-Awake and alert, tired/lethargic, CN II-XII grossly intact Ext-3+ bilateral lower extremity pitting edema with areas of erythema without drainage on anterior tibia areas, multiple areas of scabbing without bleeding or drainage, pulses 1+, nontender Current Medications: Current Medications Sig/Trever Start time Last Medication Dose Route Stop Time Status Admin Acetaminophen 650 MG Q8P PRN 08/27 2300 AC 08/27 PO 2321 Aspirin Buffered 81 MG DAILY 08/28 1000 AC PO Duloxetine HCl 30 MG DAILY 08/28 1000 AC PO Enoxaparin Sodium 40 MG DAILY 08/28 1000 AC SC Finasteride 5 MG DAILY 08/27 2102 AC 08/27 PO 2317 Gabapentin 300 MG TID 08/27 2200 AC 08/27 PO 2317 Levothyroxine Sodium 0.1 MG DAILY AC 08/28 0700 AC 08/28 PO 0644 Magnesium Sulfate 1 GM Q2H 08/28 0045 DC 08/28 Dextrose/Water 100 ML IV 08/28 0444 0315 Morphine Sulfate 0 .STK-MED ONE 08/27 1752 DC .ROUTE Morphine Sulfate 5 MG ONCE ONE 08/27 1745 DC 08/27 IV 08/27 1746 1748 Potassium Chloride 40 MEQ ONCE ONE 08/28 0115 DC 08/28 PO 08/28 0116 0102 Potassium Chloride 40 MEQ ONCE ONE 08/28 0015 DC 08/28 PO 08/28 0016 0102 Potassium Chloride 0 .STK-MED ONE 08/27 1838 DC PO Potassium Chloride 80 MEQ ONCE ONE 08/27 1830 DC 08/27 PO 08/27 1831 1842 Potassium Chloride 40 MEQ ONCE ONE 08/27 1815 CAN PO 08/27 1816 Potassium Phosphate 15 mMol ONE ONE 08/28 0845 AC Sodium Chloride 250 ML IV 08/28 1248 Sodium Chloride 1,000 ML BOLUS ONE 08/27 1815 CAN IV 08/27 1914 Tamsulosin HCl 0.4 MG DAILY 08/27 2102 AC PO Trazodone HCl 25 MG QPM PRN 08/27 2115 AC 08/27 PO 2317 Last 24 Hrs of Lab/Shahbaz Results Last 24 Hrs of Labs/Mics: Laboratory Tests 08/28/16 0611: Anion Gap 3 L, Estimated GFR > 60, BUN/Creatinine Ratio 15.0, Phosphorus 2.4 L , Triglycerides 93, Cholesterol 78, LDL Cholesterol, Calc 53 L, HDL Cholesterol 7 L, Cholesterol/HDL Ratio 11.1 H, PT 15.9 H, INR 1.52 H, CBC w Diff NO MAN DIFF REQ, RBC 2.60 L, MCV 109.8 H, MCH 36.9 H, RDW 18.7 H, MPV 8.0, Gran % 49.4, Lymphocytes % 39.1, Monocytes % 6.9, Eosinophils % 3.5, Basophils % 1.1, Absolute Granulocytes 1.6, Absolute Lymphocytes 1.3, Absolute Monocytes 0.2, Absolute Eosinophils 0.1, Absolute Basophils 0, PUBS MCHC 33.7 08/27/16 2323: Anion Gap 6, Estimated GFR > 60, BUN/Creatinine Ratio 18.3, Troponin I < 0.01, Eix-Y-Kmixtgeavsi Pept 481 H, TSH 19.500 H, Thyroxine (T4) 4.4 L 08/27/16 1735: Urinalysis LIGHT H, Urine Color GIANNA, Urine Clarity CLEAR, Urine pH 6.0, Ur Specific [place] 1.010, Urine Protein TRACE H, Urine Ketones TRACE H, Urine Nitrite NEG, Urine Bilirubin NEG@ICTO, Urine Urobilinogen >=8.0 H, Ur Leukocyte Esterase NEG, Ur Microscopic SEDIMENT EXAMINED, Urine RBC RARE, Urine WBC RARE, Ur Epithelial Cells OCCAS, Urine Bacteria RARE H, Hyaline Casts RARE H, Granular Casts RARE H, Urine Mucus RARE, Micro UA Comment , Urine Hemoglobin NEG, Urine Glucose NEG 08/27/16 1735: Urine Osmolality 458, Ur Random Creatinine 130.5, Ur Random Sodium 9 L, Ur Random Potassium 16.3, Fraction Sodium Excret 0.0 08/27/16 1646: Anion Gap 7, Estimated GFR > 60, BUN/Creatinine Ratio 18.3, Glucose 68, Serum Osmolality 282 L, Calcium 7.5 L, Magnesium 1.5 L, Total Bilirubin 2.5 H, AST 57, ALT 28, Alkaline Phosphatase 92, Troponin I < 0.01, Total Protein 5.9 L, Albumin 2.1 L, Globulin 3.8, Albumin/Globulin Ratio 0.6 L, Vitamin B12 > 1000 H, Folate 2.0 L 08/27/16 1645: CBC w Diff NO MAN DIFF REQ, RBC 2.94 L, MCV 108.4 H, MCH 37.0 H, RDW 18.6 H, MPV 7.8, Gran % 65.3, Lymphocytes % 26.3, Monocytes % 5.8, Eosinophils % 1.6, Basophils % 1.0, Absolute Granulocytes 2.5, Absolute Lymphocytes 1.0 L, Absolute Monocytes 0.2, Absolute Eosinophils 0.1, Absolute Basophils 0, PUBS MCHC 34.1 Microbiology 08/27 1735 URINE ROUT: Urine Culture - RECD Assessment/Plan Assessment: 66 year old man with past medical history of hypertension, hyperlipidemia, Gastric Sleeve/Bypass in 2013, and EtOH dependence seen for evaluation of progressively worsening generalized weakness and lower extremity swelling pain/ swelling. Patient reports feeling this way for many months. Recently he had a RLE stent and LLE angioplasty by his vascular surgery Dr. Reddy two weeks prior to admission. Patient game to the [place] [facility] for evaluation of his worsening/ persistent symptoms and inability to walk. #History of Gastric Sleeve/Bypass in 2013 #Previous history of diabetes mellitus #Hyponatremia #Hypokalemia #Hypomagnesemia #Hypothyroidism #EtOH Depedence #Malnutrition #Morbid Obesity Patient underwent gastric sleeve/bypass in 2013 for which he reportedly went from 400 pounds to 185. He has been noncompliant with his diet which he attributes to 'loosing his teeth to diabetes'. He states food doesn't 'taste good' and has no appetite for most things. Patient reported drinking one bottle of wine per day. Patients multiple metabolic derrangements are most likely due to poor nutrition and oral intake. -Telemetry -CIWA -Cymbalta 30mg PO Daily -Levothyroxine 100mcg PO Daily -Spironolactone 100mg PO Daily -Daily BEP, Mg -Replete Electrolytes PRN -Nutrition Consult #Accelerated Junctional Rhthym #History of Aortic Stenosis #Hypertension #Hyperlipidemia #Lower Extremity Pain/Swelling #Peripheral Vascular Disease Patient of Dr. Reddy. Patient reports placement of a stent in his right lower extremity and left lower extremity angioplast two weeks prior to admission. Patient of scan coordinator Dr. Guerrero. -Elevate Legs -Aspirin 81mg PO Daily -Gabapentin 300mg PO TID -Vascular Surgery Consult -Cardiology Consult -F/U Echocardiogram Pain Plan-Acetaminophen Diet-Heart Healthy Diet DVT PPx-Lovenox Code Status-DNR/DNI Problem List: 1. Bilateral lower extremity edema Pain Ratin Pain Location: None Pain Goal: Remain pain free Pain Plan: See assessment Tomorrow's Labs & Rationales: CBC/BEP/Mg
[2016-08-28 08:10] LABS: ABSOLUTE BASOPHIL COUNT 0 /CUMM (0.0-0.2); ABSOLUTE EOSINOPHIL COUNT 0.1 /CUMM (0.0-0.7); ABSOLUTE GRANULOCYTE CT 1.6 /CUMM (1.4-6.5); ABSOLUTE LYMPH COUNT 1.3 /CUMM (1.2-3.4); ABSOLUTE MONOCYTE COUNT 0.2 /CUMM (0.10-0.60); BASOPHIL % 1.1 % (0.0-2.0); EOSINOPHIL % 3.5 % (0-5); GRANULOCYTE % 49.4 % (42.2-75.2); HEMATOCRIT 28.5 % (42-52); MEAN CORPUSCULAR HGB 36.9 PG (27.0-31.0); MEAN CORPUSCULAR HGB CONC 33.7 G/DL (33.0-37.0); MEAN CORPUSCULAR VOLUME 109.8 FL (80.0-94.0); PLATELET COUNT 146 /CUMM (130-400); RBC DISTRIBUTION WIDTH 18.7 % (11.5-14.5); WHITE BLOOD CELL COUNT 3.3 /CUMM (4.8-10.8)
[2016-08-28 08:13] LABS: PT 15.9 SEC (9.4-12.5)
[2016-08-28 09:00] VITALS: BP 102/60
--- NOTE | 2016-08-28 10:07 | Cons- Cardiology ---
General Information and HPI Consulting Request Date of Consult: 08/28/16 Requested By: KINGS BERNARD,SHALINI Reason for Consult: Abnormal electrocardiogram in a patient with known aortic stenosis. Source of Information: patient, old records Exam Limitations: no limitations History of Present Illness: Jaxson Vance is a 66-year-old male who I have been following for hypertension, aortic valve disease, obesity, sleep apnea. We evaluated him in 2012 for possible bariatric surgery with a stress test and an echocardiogram. The stress test was negative for ischemia, and the echo showed mild aortic stenosis with mild LVH. At his visit in 2013, Jaxson had been doing well on weight loss and was not interested in bariatric surgery at that time. However, subsequently he did opt for this to be done, and had it done in Oct 2014 at [facility] by Dr. Crews. Apparently this was a gastric bypass, according to the patient, although I do not have the records. He had a repeat echocardiogram in 2013 and at that time it showed moderate aortic stenosis where his previous echoes had shown only mild aortic stenosis. The gradient in 2013 was 48 mm peak and 27 mm mean with an aortic valve area of between 1.7 and 1.9 cm2. This is moderate by gradient but only mild by valve area, although the gradient was definitely higher than it was in 2013. He did have a followup echocardiogram done in December 2014. This showed the left ventricular wall thickness was at the upper limits of normal. He had mild to moderate aortic stenosis with a peak gradient of about 33 mm Hg and a mean gradient of about 19 mm Hg and an aortic valve area of about 1.2 cm sq. I saw Jaxson in October 2015, which was a preoperative evaluation for right knee replacement, which he subsequently had on 11/12/2015. We did a preoperative echocardiogram on him in September which showed mild LVH, mild to moderate aortic stenosis with a peak gradient of 36 mmHg and a mean gradient of 19 mmHg, and a valve area between 1.2 and 1.4 cm2. LV function was normal. Subsequently I saw him again in January 2016 at which time he was doing well and I planned an echocardiogram for 6 months to follow-up on his aortic stenosis. Jaxson was apparently doing well until recently when he began noticing generalized weakness and had a fall on the day of admission. He does not report any cardiac symptoms including chest pain, shortness of breath, palpitations, jose syncope. He did have a vascular procedure done a couple of weeks ago as an outpatient. He has noted some redness of his lower extremities in addition. His initial evaluation noted severe hypokalemia, moderate anemia with elevated MCV, elevated TSH and slightly low T4, low folic acid level. EKG showed nonspecific T-wave changes and initially a low atrial or junctional rhythm but subsequently sinus rhythm was noted. Cardiac enzymes are negative. Potassium has been replaced but is still low at 3.2. Allergies/Medications Allergies: Coded Allergies: NO KNOWN ALLERGIES (11/02/15) Home Med List: Aspirin (Ecotrin*) 81 MG TABLET.DR 1 TAB PO DAILY HEART/BLOOD (Reported) Duloxetine HCl 30 MG CAPSULE.DR 1 CAP PO DAILY MENTAL HEALTH (Reported) Finasteride 5 MG TABLET 1 TAB PO DAILY (Reported) Furosemide 40 MG TABLET 1 TAB PO DAILY SWELLING (Reported) Gabapentin 300 MG CAPSULE 1 CAP PO TID NERVE PAIN (Reported) Levothyroxine Sodium 100 MCG TABLET 1 TAB PO DAILY THYROID (Reported) Spironolactone 100 MG TABLET 1 TAB PO DAILY DIURETIC (Reported) Tamsulosin HCl 0.4 MG CAP.ER.24H 1 CAP PO DAILY (Reported) Trazodone HCl 50 MG TABLET 1-2 TAB PO QPM PRN SLEEP (Reported) Current Medications: Current Medications Sig/Trever Start time Last Medication Dose Route Stop Time Status Admin Acetaminophen 650 MG Q8P PRN 08/27 2300 AC 08/27 PO 2321 Aspirin Buffered 81 MG DAILY 08/28 1000 AC PO Duloxetine HCl 30 MG DAILY 08/28 1000 AC PO Enoxaparin Sodium 40 MG DAILY 08/28 1000 AC SC Finasteride 5 MG DAILY 08/27 2102 AC 08/27 PO 2317 Gabapentin 300 MG TID 08/27 2200 AC 08/27 PO 2317 Levothyroxine Sodium 0.1 MG DAILY AC 08/28 0700 AC 08/28 PO 0644 Magnesium Sulfate 1 GM Q2H 08/28 0045 DC 08/28 Dextrose/Water 100 ML IV 08/28 0444 0315 Morphine Sulfate 0 .STK-MED ONE 08/27 1752 DC .ROUTE Morphine Sulfate 5 MG ONCE ONE 08/27 1745 DC 08/27 IV 08/27 1746 1748 Potassium Chloride 40 MEQ ONCE ONE 08/28 0115 DC 08/28 PO 08/28 0116 0102 Potassium Chloride 40 MEQ ONCE ONE 08/28 0015 DC 08/28 PO 08/28 0016 0102 Potassium Chloride 0 .STK-MED ONE 08/27 1838 DC PO Potassium Chloride 80 MEQ ONCE ONE 08/27 1830 DC 08/27 PO 08/27 1831 1842 Potassium Chloride 40 MEQ ONCE ONE 08/27 1815 CAN PO 08/27 1816 Potassium Phosphate 15 mMol ONE ONE 08/28 0845 AC Sodium Chloride 250 ML IV 08/28 1248 Sodium Chloride 1,000 ML BOLUS ONE 08/27 1815 CAN IV 08/27 1914 Tamsulosin HCl 0.4 MG DAILY 08/27 2103 AC PO Trazodone HCl 25 MG QPM PRN 08/27 2115 AC 08/27 PO 2317 Review of Systems Review of Systems: He has no other complaints in the review of systems at this time. 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 nonalcoholic fatty liver, history of gastrointestinal tract bypass 10/2013, diverticulosis coli. Surgical History Surgical History: LEFT ROTATOR CUFF GASTRIC BYPASS, CHOLECYSTECTOMY Family History Relations & Conditions If Any: FATHER FH: myocardial infarction Psychosocial History Services at Home: None Smoking Status: Never Smoked ETOH Use: denies use Illicit Drug Use: denies illicit drug use Functional Ability ADLs Independent: dressing, eating, toileting, bathing. Ambulation: walker IADLs Needs Assist: food prep, transportation, medication admin. Unknown: shopping, housework, finances, telephone. Exam & Diagnostic Data Vital Signs and I&O Vital Signs Date Time Temp Pulse Resp B/P B/P Pulse O2 O2 Flow FiO2 Mean Ox Delivery Rate 08/28 0900 97.7 71 20 102/60 95 Nasal 2.0L Cannula 08/28 0849 80 08/27 2321 60 96/62 08/27 2303 99.0 90 20 104/68 99 Room Air 08/27 1740 97.9 66 18 149/78 98 Room Air 08/27 1619 98 Room Air 08/27 1603 97.9 64 18 158/82 98 Room Air Intake & Output 08/28 1600 08/28 0808/28 0000 08/27 1600 08/27 0808/27 0000 Intake Total 800 400 Output Total 400 Balance 400 400 Intake, IV 200 Intake, Oral 600 400 Output, Urine 400 Patient 285 lb Weight Weight Reported by Patient Measurement Method Physical Exam: He is a large mildly obese white male in no acute distress HEENT exam is normal Neck veins not distended Carotids are difficult to feel Chest is clear Heart reveals grade 3/6 widespread systolic ejection murmur at the base and apex Abdomen is benign Extremities reveal some mild to moderate erythema of both lower extremities Labs/Shahbaz Results: Laboratory Tests 08/28 08/27 0611 2323 Chemistry Sodium (137 - 145 mmol/L) 130 L 130 L Potassium (3.5 - 5.1 mmol/L) 3.2 L 2.8 *L Chloride (98 - 107 mmol/L) 98 96 L Carbon Dioxide (22 - 30 mmol/L) 29 27 Anion Gap (5 - 16) 3 L 6 BUN (9 - 20 mg/dL) 9 11 Creatinine (0.7 - 1.2 mg/dL) 0.6 L 0.6 L Estimated GFR (>60 ml/min) > 60 > 60 BUN/Creatinine Ratio (7 - 25 %) 15.0 18.3 Phosphorus (2.5 - 4.5 mg/dL) 2.4 L Troponin I (<0.11 ng/ml) < 0.01 Eso-G-Khkklyhtcfv Pept (<125 pg/mL) 481 H Triglycerides (<150 mg/dL) 93 Cholesterol (< 200 MG/DL) 78 LDL Cholesterol, Calc (65 - 129 mg/dL) 53 L HDL Cholesterol (40 - 60 mg/dL) 7 L Cholesterol/HDL Ratio (0.00 - 4.88 %) 11.1 H TSH (0.270 - 4.200 uIU/mL) 19.500 H Thyroxine (T4) (4.5 - 10.9 ug/dL) 4.4 L Coagulation PT (9.4 - 12.5 SEC) 15.9 H INR (0.90 - 1.17) 1.52 H Hematology CBC w Diff NO MAN DIFF REQ WBC (4.8 - 10.8 /CUMM) 3.3 L RBC (4.70 - 6.10 /CUMM) 2.60 L Hgb (14.0 - 18.0 G/DL) 9.6 L Hct (42 - 52 %) 28.5 L MCV (80.0 - 94.0 FL) 109.8 H MCH (27.0 - 31.0 PG) 36.9 H RDW (11.5 - 14.5 %) 18.7 H Plt Count (130 - 400 /CUMM) 146 MPV (7.4 - 10.4 FL) 8.0 Gran % (42.2 - 75.2 %) 49.4 Lymphocytes % (20.5 - 51.1 %) 39.1 Monocytes % (1.7 - 9.3 %) 6.9 Eosinophils % (0 - 5 %) 3.5 Basophils % (0.0 - 2.0 %) 1.1 Absolute Granulocytes (1.4 - 6.5 /CUMM) 1.6 Absolute Lymphocytes (1.2 - 3.4 /CUMM) 1.3 Absolute Monocytes (0.10 - 0.60 /CUMM) 0.2 Absolute Eosinophils (0.0 - 0.7 /CUMM) 0.1 Absolute Basophils (0.0 - 0.2 /CUMM) 0 PUBS MCHC (33.0 - 37.0 G/DL) 33.7 08/27 08/27 08/27 1735 1735 1646 Chemistry Sodium (137 - 145 mmol/L) 128 L Potassium (3.5 - 5.1 mmol/L) 2.9 *L Chloride (98 - 107 mmol/L) 95 L Carbon Dioxide (22 - 30 mmol/L) 26 Anion Gap (5 - 16) 7 BUN (9 - 20 mg/dL) 11 Creatinine (0.7 - 1.2 mg/dL) 0.6 L Estimated GFR (>60 ml/min) > 60 BUN/Creatinine Ratio (7 - 25 %) 18.3 Glucose (65 - 99 mg/dL) 68 Serum Osmolality (285 - 295 MOSM/KG) 282 L Calcium (8.4 - 10.2 mg/dL) 7.5 L Magnesium (1.6 - 2.3 mg/dL) 1.5 L Total Bilirubin (0.2 - 1.3 mg/dL) 2.5 H AST (17 - 59 U/L) 57 ALT (21 - 72 U/L) 28 Alkaline Phosphatase (< 127 U/L) 92 Troponin I (<0.11 ng/ml) < 0.01 Total Protein (6.3 - 8.2 g/dL) 5.9 L Albumin (3.5 - 5.0 g/dL) 2.1 L Globulin (1.9 - 4.2 gm/dL) 3.8 Albumin/Globulin Ratio (1.1 - 2.2 %) 0.6 L Vitamin B12 (239 - 931 pg/mL) > 1000 H Folate (2.76 - 20.0 ng/mL) 2.0 L Urines Urinalysis LIGHT H Urine Color (YEL,AMB,STR) GIANNA Urine Clarity (CLEAR) CLEAR Urine pH (5.0 - 8.0) 6.0 Ur Specific [place] (1.001 - 1.035) 1.010 Urine Protein (NEG,<30 MG/DL) TRACE H Urine Ketones (NEG) TRACE H Urine Nitrite (NEG) NEG Urine Bilirubin (NEG) NEG@ICTO Urine Urobilinogen (0.1 - 1.0 EU/dl) >=8.0 H Ur Leukocyte Esterase (NEG) NEG Ur Microscopic SEDIMENT EXAMINED Urine RBC (0 - 5 /HPF) RARE Urine WBC (0 - 2 /HPF) RARE Ur Epithelial Cells (NONE,FEW) OCCAS Urine Bacteria (NEG/NONE) RARE H Hyaline Casts (0/LPF) RARE H Granular Casts (NONE /LPF) RARE H Urine Mucus (FEW,NONE) RARE Micro UA Comment Urine Hemoglobin (NEG) NEG Urine Osmolality (300 - 1000 MOSM/KG) 458 Ur Random Creatinine (mg/dL) 130.5 Ur Random Sodium (30 - 90 mmol/L) 9 L Ur Random Potassium (mmol/L) 16.3 Fraction Sodium Excret (<1% %) 0.0 Urine Glucose (N MG/DL) NEG 08/27 1645 Hematology CBC w Diff NO MAN DIFF REQ WBC (4.8 - 10.8 /CUMM) 3.8 L RBC (4.70 - 6.10 /CUMM) 2.94 L Hgb (14.0 - 18.0 G/DL) 10.9 L Hct (42 - 52 %) 31.9 L MCV (80.0 - 94.0 FL) 108.4 H MCH (27.0 - 31.0 PG) 37.0 H RDW (11.5 - 14.5 %) 18.6 H Plt Count (130 - 400 /CUMM) 151 MPV (7.4 - 10.4 FL) 7.8 Gran % (42.2 - 75.2 %) 65.3 Lymphocytes % (20.5 - 51.1 %) 26.3 Monocytes % (1.7 - 9.3 %) 5.8 Eosinophils % (0 - 5 %) 1.6 Basophils % (0.0 - 2.0 %) 1.0 Absolute Granulocytes (1.4 - 6.5 /CUMM) 2.5 Absolute Lymphocytes (1.2 - 3.4 /CUMM) 1.0 L Absolute Monocytes (0.10 - 0.60 /CUMM) 0.2 Absolute Eosinophils (0.0 - 0.7 /CUMM) 0.1 Absolute Basophils (0.0 - 0.2 /CUMM) 0 PUBS MCHC (33.0 - 37.0 G/DL) 34.1 Diagnostic Data EKG Results EKG on admission shows sinus or low atrial rhythm at a rate of 68. There is early precordial transition and diffuse nonspecific T-wave abnormalities. Repeat EKG at 11:00 on 08/27/2016 shows sinus rhythm at a rate of 64 with nonspecific T-wave abnormalities slightly less than on the previous tracing. CXR Results Not done. Assessment/Plan Assessment/Plan The patient is a 66-year-old man with previous morbid obesity, status post gastric bypass. He has known aortic valve disease with mild to moderate aortic stenosis on last determination about one year ago. He presents today with generalized weakness and severe hypokalemia, possibly due to poor dietary intake , question excess alcohol intake. He also has a moderate macrocytic anemia and low folic acid level which may be on the basis of alcohol versus poor absorption due to previous gastric bypass. He is being treated appropriately with repletion of electrolytes etc. From a cardiac standpoint a repeat echocardiogram has been ordered for follow-up of his aortic stenosis and I will interpret and comment on that. Once his electrolytes are repleted and assuming he has no significant arrhythmias telemetry can be discontinued at that time. Consult Acknowledgment - Thank you for your consult request.
[2016-08-28 11:14] VITALS: BP 102/60
--- NOTE | 2016-08-28 11:24 | PN- Att Addend ---
Attending Addendum Attending Brief Note Patient seen and examined. Plan of care discussed with the medical team and the patient. Available lab work and radiology test reports were reviewed. Patient is currently awake and does not appear to be disoriented. He appears somewhat irritable. He denies any chest pain or difficulty breathing. Complains of mild central abdominal pain. Vital Signs Date Time Temp Pulse Resp B/P B/P Pulse O2 O2 Flow FiO2 Mean Ox Delivery Rate 08/28 09 97.7 71 20 102/60 95 Nasal 2.0L Cannula 08/28 0849 80 08/27 2321 60 96/62 08/27 2303 99.0 90 20 104/68 99 Room Air 08/27 1740 97.9 66 18 149/78 98 Room Air 08/27 1619 98 Room Air 08/27 1603 97.9 64 18 158/82 98 Room Air Intake & Output 08/28 1600 08/28 0800 08/28 0000 Intake Total 800 400 Output Total 400 Balance 400 400 Intake, IV 200 Intake, Oral 600 400 Output, Urine 400 Patient 285 lb Weight Weight Reported by Patient Measurement Method Exam: General: Patient awake alert oriented without any distress; no tremors are seen. CVS: S1 plus S2 without any murmur or gallops Chest: Few scattered crepitation without any wheeze. There is no respiratory distress. 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 Evidence of scratch elizondo from recent fall on the right godinez. no clubbing or cyanosis noted Laboratory Tests 08/28 08/27 0611 2323 Chemistry Sodium (137 - 145 mmol/L) 130 L 130 L Potassium (3.5 - 5.1 mmol/L) 3.2 L 2.8 *L Chloride (98 - 107 mmol/L) 98 96 L Carbon Dioxide (22 - 30 mmol/L) 29 27 Anion Gap (5 - 16) 3 L 6 BUN (9 - 20 mg/dL) 9 11 Creatinine (0.7 - 1.2 mg/dL) 0.6 L 0.6 L Estimated GFR (>60 ml/min) > 60 > 60 BUN/Creatinine Ratio (7 - 25 %) 15.0 18.3 Phosphorus (2.5 - 4.5 mg/dL) 2.4 L Troponin I (<0.11 ng/ml) < 0.01 [id number] Pept (<125 pg/mL) 481 H Triglycerides (<150 mg/dL) 93 Cholesterol (< 200 MG/DL) 78 LDL Cholesterol, Calc (65 - 129 mg/dL) 53 L HDL Cholesterol (40 - 60 mg/dL) 7 L Cholesterol/HDL Ratio (0.00 - 4.88 %) 11.1 H TSH (0.270 - 4.200 uIU/mL) 19.500 H Thyroxine (T4) (4.5 - 10.9 ug/dL) 4.4 L Coagulation PT (9.4 - 12.5 SEC) 15.9 H INR (0.90 - 1.17) 1.52 H Hematology CBC w Diff NO MAN DIFF REQ WBC (4.8 - 10.8 /CUMM) 3.3 L RBC (4.70 - 6.10 /CUMM) 2.60 L Hgb (14.0 - 18.0 G/DL) 9.6 L Hct (42 - 52 %) 28.5 L MCV (80.0 - 94.0 FL) 109.8 H MCH (27.0 - 31.0 PG) 36.9 H RDW (11.5 - 14.5 %) 18.7 H Plt Count (130 - 400 /CUMM) 146 MPV (7.4 - 10.4 FL) 8.0 Gran % (42.2 - 75.2 %) 49.4 Lymphocytes % (20.5 - 51.1 %) 39.1 Monocytes % (1.7 - 9.3 %) 6.9 Eosinophils % (0 - 5 %) 3.5 Basophils % (0.0 - 2.0 %) 1.1 Absolute Granulocytes (1.4 - 6.5 /CUMM) 1.6 Absolute Lymphocytes (1.2 - 3.4 /CUMM) 1.3 Absolute Monocytes (0.10 - 0.60 /CUMM) 0.2 Absolute Eosinophils (0.0 - 0.7 /CUMM) 0.1 Absolute Basophils (0.0 - 0.2 /CUMM) 0 PUBS MCHC (33.0 - 37.0 G/DL) 33.7 08/27 08/27 08/27 1735 1735 1646 Chemistry Sodium (137 - 145 mmol/L) 128 L Potassium (3.5 - 5.1 mmol/L) 2.9 *L Chloride (98 - 107 mmol/L) 95 L Carbon Dioxide (22 - 30 mmol/L) 26 Anion Gap (5 - 16) 7 BUN (9 - 20 mg/dL) 11 Creatinine (0.7 - 1.2 mg/dL) 0.6 L Estimated GFR (>60 ml/min) > 60 BUN/Creatinine Ratio (7 - 25 %) 18.3 Glucose (65 - 99 mg/dL) 68 Serum Osmolality (285 - 295 MOSM/KG) 282 L Calcium (8.4 - 10.2 mg/dL) 7.5 L Magnesium (1.6 - 2.3 mg/dL) 1.5 L Total Bilirubin (0.2 - 1.3 mg/dL) 2.5 H AST (17 - 59 U/L) 57 ALT (21 - 72 U/L) 28 Alkaline Phosphatase (< 127 U/L) 92 Troponin I (<0.11 ng/ml) < 0.01 Total Protein (6.3 - 8.2 g/dL) 5.9 L Albumin (3.5 - 5.0 g/dL) 2.1 L Globulin (1.9 - 4.2 gm/dL) 3.8 Albumin/Globulin Ratio (1.1 - 2.2 %) 0.6 L Vitamin B12 (239 - 931 pg/mL) > 1000 H Folate (2.76 - 20.0 ng/mL) 2.0 L Urines Urinalysis LIGHT H Urine Color (YEL,AMB,STR) GIANNA Urine Clarity (CLEAR) CLEAR Urine pH (5.0 - 8.0) 6.0 Ur Specific [place] (1.001 - 1.035) 1.010 Urine Protein (NEG,<30 MG/DL) TRACE H Urine Ketones (NEG) TRACE H Urine Nitrite (NEG) NEG Urine Bilirubin (NEG) NEG@ICTO Urine Urobilinogen (0.1 - 1.0 EU/dl) >=8.0 H Ur Leukocyte Esterase (NEG) NEG Ur Microscopic SEDIMENT EXAMINED Urine RBC (0 - 5 /HPF) RARE Urine WBC (0 - 2 /HPF) RARE Ur Epithelial Cells (NONE,FEW) OCCAS Urine Bacteria (NEG/NONE) RARE H Hyaline Casts (0/LPF) RARE H Granular Casts (NONE /LPF) RARE H Urine Mucus (FEW,NONE) RARE Micro UA Comment Urine Hemoglobin (NEG) NEG Urine Osmolality (300 - 1000 MOSM/KG) 458 Ur Random Creatinine (mg/dL) 130.5 Ur Random Sodium (30 - 90 mmol/L) 9 L Ur Random Potassium (mmol/L) 16.3 Fraction Sodium Excret (<1% %) 0.0 Urine Glucose (N MG/DL) NEG 08/27 1645 Hematology CBC w Diff NO MAN DIFF REQ WBC (4.8 - 10.8 /CUMM) 3.8 L RBC (4.70 - 6.10 /CUMM) 2.94 L Hgb (14.0 - 18.0 G/DL) 10.9 L Hct (42 - 52 %) 31.9 L MCV (80.0 - 94.0 FL) 108.4 H MCH (27.0 - 31.0 PG) 37.0 H RDW (11.5 - 14.5 %) 18.6 H Plt Count (130 - 400 /CUMM) 151 MPV (7.4 - 10.4 FL) 7.8 Gran % (42.2 - 75.2 %) 65.3 Lymphocytes % (20.5 - 51.1 %) 26.3 Monocytes % (1.7 - 9.3 %) 5.8 Eosinophils % (0 - 5 %) 1.6 Basophils % (0.0 - 2.0 %) 1.0 Absolute Granulocytes (1.4 - 6.5 /CUMM) 2.5 Absolute Lymphocytes (1.2 - 3.4 /CUMM) 1.0 L Absolute Monocytes (0.10 - 0.60 /CUMM) 0.2 Absolute Eosinophils (0.0 - 0.7 /CUMM) 0.1 Absolute Basophils (0.0 - 0.2 /CUMM) 0 PUBS MCHC (33.0 - 37.0 G/DL) 34.1 Microbiology Date/Time Procedure - Status Source Growth 08/27 1735 Urine Culture - RES URINE ROUT Ultrasound leg Normal triplex scan without evidence of deep venous thrombosis involving the lower extremities. Assessment * Generalized weakness and lethargy- without any clear etiology; she has not been able to ambulate at home and has history of recent fall. * EKG changes with T-wave inversions and junctional rhythm likely due to hypokalemia and electrolyte abnormalities * History of alcohol abuse-patient has been sober for last 2 months * Abnormal LFTs- rule out underlying cirrhosis * Hypothyroidism * Lower extremity edema and redness likely due to venous stasis-ultrasound was negative for DVT * Chronic anemia Plan * Arrange for short-term rehabilitation * Continue CIWA protocol * Replace potassium by mouth * Ultrasound of liver * Continue leg elevation * Restart Aldactone
--- NOTE | 2016-08-28 11:58 | ULTRASOUND REPORT ---
EXAMINATION: US ABDOMEN LIMITED CLINICAL INFORMATION: 66-year-old male with elevated LFTs.. COMPARISON: None TECHNIQUE: Real-time imaging of the right upper quadrant abdominal viscera. Evaluation is limited secondary to patient body habitus and bowel gas. FINDINGS: PANCREAS: Not visualized secondary to overlying bowel gas. LIVER: The liver demonstrates increased echogenicity suggesting hepatic steatosis. No focal lesion or intrahepatic biliary duct dilatation. Perihepatic ascites is noted. GALLBLADDER: The patient is status post cholecystectomy. COMMON BILE DUCT: Not visualized. RIGHT KIDNEY: Normal. No hydronephrosis. No renal calculi or focal parenchymal lesions. The kidney measures 11.6 cm in maximum dimension. FREE FLUID: Moderate amount of ascites noted. IMPRESSION: Limited evaluation secondary to patient body habitus and attenuation from overlying bowel gas. The liver demonstrates increased echogenicity which can be seen with hepatic steatosis and/or underlying chronic liver disease. No biliary ductal dilatation. Moderate amount of ascites.
--- NOTE | 2016-08-28 13:44 | NUR ---
wound care: attempt to evlauate pt for reported skin alterations - pt off floor for ultrasound - will reattempt assessment
[2016-08-28 14:50] VITALS: BP 90/62
--- NOTE | 2016-08-28 17:45 | Cons- Endocrinology ---
General Information and HPI Consulting Request Date of Consult: 08/28/16 Requested By: medical team Reason for Consult: Hypothyroidism and electrolyte disturbance Source of Information: patient, old records Exam Limitations: poor historian History of Present Illness: 66-year-old male brought to the emergency room because of extreme weakness of his arms and legs. The patient states that he was having numbness and tingling and difficulty walking despite using his rolling walker. He also noticed swelling of his legs. The patient was found to have severe hypokalemia and also magnesium deficiency. He also had a low albumin with a calcium of 7.5 and a corrected calcium of 9.1. He was also anemic. The patient does have a history of hypothyroidism on an autoimmune basis. He has positive antithyroid peroxidase antibodies. He was on levothyroxin 112 g daily but states that at home he was taking levothyroxin 100 g daily and that the pills were . He has not seen Dr. Petty since December 2015. At that time patient's thyroid tests were in a good range with a normal TSH. His vitamin D level was 62.2. His BUN was 8 creatinine 0.7 sodium 141 potassium 4.9 chloride 105 and CO2 28. Calcium was 8.7 with an albumin of 3.4. At that time the patient was not on spironalactone. Important in the patient's past history the fact that the patient had a Gastro jejunal bypass at in [place] by Dr. Crews in October 2013. He lost about 190 pounds of weight. He was diabetic before the bypass was done but since that time has not had diabetes after his weight loss.. 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 Is a question of whether or not the patient was drinking alcohol prior to admission. He states that he was drinking wine at night but stopped for a few weeks prior to admission. Allergies/Medications Allergies: Coded Allergies: NO KNOWN ALLERGIES (11/02/15) Home Med List: Aspirin (Ecotrin*) 81 MG TABLET.DR 1 TAB PO DAILY HEART/BLOOD (Reported) Duloxetine HCl 30 MG CAPSULE.DR 1 CAP PO DAILY MENTAL HEALTH (Reported) Finasteride 5 MG TABLET 1 TAB PO DAILY (Reported) Furosemide 40 MG TABLET 1 TAB PO DAILY SWELLING (Reported) Gabapentin 300 MG CAPSULE 1 CAP PO TID NERVE PAIN (Reported) Levothyroxine Sodium 100 MCG TABLET 1 TAB PO DAILY THYROID (Reported) Spironolactone 100 MG TABLET 1 TAB PO DAILY DIURETIC (Reported) Tamsulosin HCl 0.4 MG CAP.ER.24H 1 CAP PO DAILY (Reported) Trazodone HCl 50 MG TABLET 1-2 TAB PO QPM PRN SLEEP (Reported) Past History Travel History Traveled to [place] past 21 day No Medical History Neurological: NONE EENT: NONE Cardiovascular: NONE Respiratory: NONE Gastrointestinal: HX CHOLECYSTECTOMY Hepatic: jaundice Renal: NONE Musculoskeletal: disk herniation, osteoarthritis Psychiatric: NONE Endocrine: NONE Blood Disorders: anemia Cancer(s): NONE MEDICAL BILLING SERVICE/Reproductive: NONE Other Medical Hx: #1 diabetes (resolved post gastric bypass); hypothyroid, hypertension, obstructive sleep apnea, 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 nonalcoholic fatty liver, history of gastrointestinal tract bypass 10/2013, diverticulosis coli. Surgical History Surgical History: LEFT ROTATOR CUFF GASTRIC BYPASS, CHOLECYSTECTOMY Family History Relations & Conditions If Any: FATHER FH: myocardial infarction Psychosocial History Services at Home: None Smoking Status: Never Smoked ETOH Use: denies use Illicit Drug Use: denies illicit drug use Functional Ability ADLs Independent: dressing, eating, toileting, bathing. Ambulation: walker IADLs Needs Assist: food prep, transportation, medication admin. Unknown: shopping, housework, finances, telephone. Exam & Diagnostic Data Last 24 Hrs of Vital Signs/I&O Vital Signs Date Time Temp Pulse Resp B/P B/P Pulse O2 O2 Flow FiO2 Mean Ox Delivery Rate 08/28 1600 77 08/28 1450 97.4 82 20 90/62 97 Room Air 08/28 1337 106/60 08/28 1114 97.7 71 20 102/60 08/28 0900 97.7 71 20 102/60 95 Nasal 2.0L Cannula 08/28 0849 80 08/27 2321 60 96/62 08/27 2303 99.0 90 20 104/68 99 Room Air Intake & Output 08/28 1600 08/28 0800 08/28 0000 Intake Total 800 400 Output Total 400 Balance 400 400 Intake, IV 200 Intake, Oral 600 400 Output, Urine 400 Patient 249 lb 285 lb Weight Weight Bee Lift Reported by Patient Measurement Method Vital Signs Date Time Temp Pulse Resp B/P B/P Pulse O2 O2 Flow FiO2 Mean Ox Delivery Rate 08/28 1600 77 08/28 1450 97.4 82 20 90/62 97 Room Air 08/28 1337 106/60 08/28 1114 97.7 71 20 102/60 08/28 0900 97.7 71 20 102/60 95 Nasal 2.0L Cannula 08/28 0849 80 08/27 2321 60 96/62 08/27 2303 99.0 90 20 104/68 99 Room Air Intake & Output 08/28 1600 08/28 0800 08/28 0000 Intake Total 800 400 Output Total 400 Balance 400 400 Intake, IV 200 Intake, Oral 600 400 Output, Urine 400 Patient 249 lb 285 lb Weight Weight Bee Lift Reported by Patient Measurement Method Labs/Shahbaz Results: Laboratory Tests 08/28 08/28 08/27 1730 0611 2323 Chemistry Sodium (137 - 145 mmol/L) Pending 130 L 130 L Potassium (3.5 - 5.1 mmol/L) Pending 3.2 L 2.8 *L Chloride (98 - 107 mmol/L) Pending 98 96 L Carbon Dioxide (22 - 30 mmol/L) Pending 29 27 Anion Gap (5 - 16) Pending 3 L 6 BUN (9 - 20 mg/dL) 9 11 Creatinine (0.7 - 1.2 mg/dL) 0.6 L 0.6 L Estimated GFR (>60 ml/min) > 60 > 60 BUN/Creatinine Ratio (7 - 25 %) 15.0 18.3 Phosphorus (2.5 - 4.5 mg/dL) 2.4 L Troponin I (<0.11 ng/ml) < 0.01 Irm-B-Nwrkliiotch Pept (<125 pg/mL) 481 H Triglycerides (<150 mg/dL) 93 Cholesterol (< 200 MG/DL) 78 LDL Cholesterol, Calc (65 - 129 mg/dL) 53 L HDL Cholesterol (40 - 60 mg/dL) 7 L Cholesterol/HDL Ratio (0.00 - 4.88 %) 11.1 H TSH (0.270 - 4.200 uIU/mL) 19.500 H Thyroxine (T4) (4.5 - 10.9 ug/dL) 4.4 L Coagulation PT (9.4 - 12.5 SEC) 15.9 H INR (0.90 - 1.17) 1.52 H Hematology CBC w Diff NO MAN DIFF REQ WBC (4.8 - 10.8 /CUMM) 3.3 L RBC (4.70 - 6.10 /CUMM) 2.60 L Hgb (14.0 - 18.0 G/DL) 9.6 L Hct (42 - 52 %) 28.5 L MCV (80.0 - 94.0 FL) 109.8 H MCH (27.0 - 31.0 PG) 36.9 H RDW (11.5 - 14.5 %) 18.7 H Plt Count (130 - 400 /CUMM) 146 MPV (7.4 - 10.4 FL) 8.0 Gran % (42.2 - 75.2 %) 49.4 Lymphocytes % (20.5 - 51.1 %) 39.1 Monocytes % (1.7 - 9.3 %) 6.9 Eosinophils % (0 - 5 %) 3.5 Basophils % (0.0 - 2.0 %) 1.1 Absolute Granulocytes (1.4 - 6.5 /CUMM) 1.6 Absolute Lymphocytes (1.2 - 3.4 /CUMM) 1.3 Absolute Monocytes (0.10 - 0.60 /CUMM) 0.2 Absolute Eosinophils (0.0 - 0.7 /CUMM) 0.1 Absolute Basophils (0.0 - 0.2 /CUMM) 0 PUBS MCHC (33.0 - 37.0 G/DL) 33.7 Assessment/Plan Assessment/Plan This patient has a known history of hypothyroidism. His thyroid tests were in a good range last November on levothyroxine 112 g daily. He now presents with hypothyroidism with a TSH of 19. He has underlying Jacy's thyroiditis. It is not clear why the patient's hypothyroidism is not in control. Either he stopped taking his medication, the medication was old as he states, or he is not absorbing the medicine. For the present time I would increase his levothyroxine 212 g daily. It should be given first thing in the morning on an empty stomach and out from any other medications. With regard to his severe hypokalemia continue to replete his potassium. His magnesium was also low on admission and this should be repleted as hypomagnesemia can lead to hypokalemia and hypocalcemia. Patient has placed back on spironalactone. He states he was not taking this medication at home. I am not sure that he needs this medication. If this medication is used it takes about 3 days to have an onset of action. At that time we have to be very careful of administering further potassium supplements because severe hyperkalemia can result from the combination of potassium supplements and spironalactone. The cause of the deterioration of the patient's thyroid condition and his severe electrolyte disturbances is not clear. He may have been drinking alcohol at home which can lead to hypokalemia. He may have not been eating properly and taking care of himself. His gastric bypass surgery undoubtedly contributed to these deficiencies. In patients who have had gastric bypass surgery we should measure their iron, TIBC, ferritin, B12, folic acid, copper, zinc, and 25-hydroxy vitamin D level. Thiamine should also be measured in this patient. The patient's folic acid level was low and this should be up supplemented. Consult Acknowledgment - Thank you for your consult request.
--- NOTE | 2016-08-28 18:08 | ECHOCARDIOGRAM REPORT ---
DIANN HARRINGTON Age: 66 : 1950 Gender: M Exam Date: 08/28/2016 15:40 Exam Location: 1 [address] Ht (in): 71 Wt (lb): 285 BSA: 2.60 BP: 96 / 62 Ordering Physician: AAMIR CASE MD Referring Physician: Ronaldo Guerrero MD Chief, SoC Technologist: Conchis Benítez [facility] Room Number: [id number] Indications: CARDIOMYOPATHY Rhythm: Sinus Technical Quality: Fair FINDINGS Left Ventricle Normal size left ventricle. Mild concentric left ventricular hypertrophy. Normal left ventricular ejection fraction visually estimated at >65 %. No obvious regional wall motion abnormalities. Abnormal relaxation filling pattern of the left ventricle for age (stage 1 diastolic dysfunction). Right Ventricle The right ventricle is normal in size and function. Right Atrium The right atrium is normal in size. Left Atrium Mild to moderate left atrial dilatation. Mitral Valve Mild thickening/calcification of the mitral valve leaflets. Moderate mitral annular calcification. Mild mitral regurgitation. Aortic Valve Diffuse thickening of the aortic valve cusps with reduced excursion. Moderate aortic stenosis. Mild aortic regurgitation. Tricuspid Valve Structurally normal tricuspid valve. Mild tricuspid regurgitation. Right ventricular systolic pressure estimated to be within the normal range at 20-25 mmHg. Pulmonic Valve Structurally normal pulmonic valve. There is no pulmonic regurgitation. Pericardium Normal pericardium without effusion. No pleural effusion. Great Vessels Upper normal limits aortic root dimension. The aortic arch and great vessels are well seen and are normal. CONCLUSIONS Mild concentric left ventricular hypertrophy. Normal left ventricular ejection fraction visually estimated at >65 Abnormal relaxation filling pattern of the left ventricle for age (stage 1 diastolic dysfunction). Mild to moderate left atrial dilatation. Mild thickening/calcification of the mitral valve leaflets. Moderate mitral annular calcification. Mild mitral regurgitation. Diffuse thickening of the aortic valve cusps with reduced excursion. Moderate aortic stenosis. Mild aortic regurgitation. Right ventricular systolic pressure estimated to be within the normal range at 20-25 mmHg. Upper normal limits aortic root dimension. Compared to echocardiogram of 10/17/2015 the degree of aortic stenosis is slightly increased with a mean gradient of 22 mmHg, which was previously 19 mmHg, However the peak gradient is very similar at 37 mmHg versus 36 mmHg previously. Ronaldo Guerrero M.D. (Electronically Signed) Final Date: 28 August 2016 18:07 MEASUREMENTS (Male / Female) Normal Values 2D ECHO LV Diastolic Diameter PLAX 3.7 cm 4.2 - 5.9 / 3.9 - 5.3 cm LV Systolic Diameter PLAX 2.1 cm 2.1 - 4.0 cm LV Fractional Shortening PLAX 43.2 % 25 - 46 % LV Ejection Fraction 2D Teich 75.2 % IVS Diastolic Thickness 1.3 cm LVPW Diastolic Thickness 1.2 cm LV Relative Wall Thickness 0.7 RV Internal Dim ED PLAX 2.6 cm 1.9 - 3.8 cm LVOT Diameter 2.0 cm Aortic Root Diameter 3.7 cm LA Systolic Diameter LX 3.4 cm 3.0 - 4.0 / 2.7 - 3.8 cm LA Volume 71.0 cm 18 - 58 / 22 - 52 cm DOPPLER AV Peak Velocity 304.0 cm/s AV Peak Gradient 37.0 mmHg AV Mean Velocity 220.0 cm/s AV Mean Gradient 22.0 mmHg AV Velocity Time Integral 67.6 cm LVOT Peak Velocity 91.7 cm/s LVOT Peak Gradient 3.4 mmHg LVOT Mean Velocity 64.8 cm/s LVOT Mean Gradient 2.0 mmHg LVOT Velocity Time Integral 22.6 cm LVOT Stroke Volume 71.0 cm AV Area Cont Eq vti 1.1 cm AV Area Cont Eq pk 0.9 cm MV Peak Velocity 84.7 cm/s MV Peak Gradient 2.9 mmHg MV Mean Velocity 48.9 cm/s MV Mean Gradient 1.0 mmHg Mitral E Point Velocity 54.8 cm/s Mitral A Point Velocity 79.0 cm/s Mitral E to A Ratio 0.7 MV PHT Velocity 70.0 cm/s MV Deceleration Lassen 267.0 cm/s MV Pressure Half Time 78.7 ms MV Area PHT 2.8 cm MV Deceleration Time 364.0 ms TR Peak Velocity 211.0 cm/s TR Peak Gradient 17.8 mmHg Right Atrial Pressure 5.0 mmHg Pulmonary Artery Systolic Pressu 22.8 mmHg Right Ventricular Systolic Press 22.8 mmHg PV Peak Velocity 72.3 cm/s PV Peak Gradient 2.1 mmHg PV Mean Velocity 45.8 cm/s PV Mean Gradient 1.0 mmHg PV Velocity Time Integral 10.5 cm LV E' Lateral Velocity 7.2 cm/s Mitral E to LV E' Lateral Ratio 7.6 LV E' Septal Velocity 5.6 cm/s Mitral E to LV E' Septal Ratio 9.9
[2016-08-28 19:41] VITALS: BP 96/58
[2016-08-28 22:49] VITALS: BP 98/64
[2016-08-29] VITALS: BP 100/60
[2016-08-29 06:00] VITALS: BP 102/62
--- NOTE | 2016-08-29 07:01 | PN- Housestaff ---
Subjective Follow-up For: Generalized Weakness History of Gastric Sleeve/Bypass Hyponatremia Hypokalemia Hypomag Hypothyroidism Lower extremity swelling Tele-Events Since Last Visit: NSR 72-75 No events Subjective: Patient seen and examined. He is seen lying flat in bed resting comfortably. He appears to be in no acute distress. He reports sleeping well and has no new complaints. He does not know if his legs look any different than in previous days and admits that they feel no different. He feels that he did well with physical therapy yesterday and is eager to work with them again today. Otherwise he denies any fever, chills, chest pain, palpitations, shortness of breath, nausea, vomiting, diarrhea. Review of Systems Constitutional: Reports: see HPI. Objective Last 24 Hrs of Vital Signs/I&O Vital Signs Date Time Temp Pulse Resp B/P B/P Pulse O2 O2 Flow FiO2 Mean Ox Delivery Rate 08/29 1447 98.1 78 20 110/70 94 Room Air 08/29 1430 80 08/29 0935 106/62 08/29 0907 Room Air 2.0L 08/29 0828 74 08/29 0716 98.2 75 18 102/62 93 Room Air 08/29 0600 98.7 70 20 102/62 08/29 0000 64 20 100/60 08/28 2249 97.7 81 16 98/64 95 Room Air 08/28 2200 77 08/28 2000 76 08/28 1941 76 96/58 08/28 1800 77 08/28 1600 77 Intake & Output 08/29 1600 08/29 0800 08/29 0000 Intake Total 207 764 6094 Output Total 650 300 250 Balance -250 -200 1160 Intake, IV 250 Intake, Oral 696 001 6999 Number 0 Bowel Movements Output, Urine 650 300 250 Patient 113.001 kg Weight Weight Bee Lift Measurement Method Physical Exam General Appearance: Alert, Oriented X3, Cooperative, No Acute Distress Other Physical Findings: General-well developed, well nourished morbidly obese elderly man in no acute distress HEENT-NCAT, PERRL, EOMI, anicteric sclera Neck-Supple, No JVD Chest-2/6 holosystolic murmur Lung-CTA Bilaterally Abdomen-Soft, nontender, obese, bowel sounds intact Neuro-Awake and alert, tired/lethargic, CN II-XII grossly intact Ext-3+ bilateral lower extremity pitting edema with areas of erythema without drainage on anterior tibia areas, multiple areas of scabbing without bleeding or drainage, pulses 1+, nontender Current Medications: Current Medications Sig/Trever Start time Last Medication Dose Route Stop Time Status Admin Acetaminophen 650 MG Q8P PRN 08/27 2300 AC 08/27 PO 2321 Aspirin Buffered 81 MG DAILY 08/28 1000 AC 08/29 PO 0935 Duloxetine HCl 30 MG DAILY 08/28 1000 AC 08/29 PO 0935 Enoxaparin Sodium 40 MG DAILY 08/28 1000 AC 08/29 SC 0934 Finasteride 5 MG DAILY 08/27 2102 AC 08/29 PO 0935 Folic Acid 1 MG DAILY 08/29 1000 AC 08/29 PO 0935 Furosemide 40 MG DAILY 08/29 1000 AC 08/29 PO 0940 Gabapentin 900 MG TID 08/29 1600 AC PO Gabapentin 600 MG 1100 08/29 1100 DC 08/29 PO 08/29 1101 1138 Gabapentin 300 MG TID 08/27 2200 DC 08/29 PO 0934 Levothyroxine Sodium 0.212 MG DAILY AC 08/29 0700 AC 08/29 PO 0622 Levothyroxine Sodium 0.1 MG DAILY AC 08/28 0700 DC 08/28 PO 0644 Patient Medication 1 ED .STK-MED ONE 08/29 1428 SD Teaching ED 08/29 1429 Spironolactone 100 MG DAILY 08/28 1200 AC 08/29 PO 0934 Tamsulosin HCl 0.4 MG DAILY 08/27 210 AC 08/29 PO 0935 Trazodone HCl 25 MG QPM PRN 08/27 2115 AC 08/28 PO 2137 Last 24 Hrs of Lab/Shahbaz Results Last 24 Hrs of Labs/Mics: Laboratory Tests 08/29/16 1225: RBC Folate Pending 08/29/16 1145: Whole Bld Vitamin B1 Pending, Serum Copper Pending, Zinc Pending 08/29/16 0615: Anion Gap 4 L, Estimated GFR > 60, BUN/Creatinine Ratio 13.3, Glucose 67, Calcium 7.3 L, Iron 55, TIBC 173 L, Ferritin 479.0 H, 25-OH Vitamin D Total 43.5, TSH 13.300 H, Free T4 1.15 08/28/16 1730: Anion Gap 4 L Assessment/Plan Assessment: 66 year old man with past medical history of hypertension, hyperlipidemia, Gastric Sleeve/Bypass in 2013, and EtOH dependence seen for evaluation of progressively worsening generalized weakness and lower extremity swelling pain/ swelling. Patient reports feeling this way for many months. Recently he had a RLE stent and LLE angioplasty by his vascular surgery Dr. Reddy two weeks prior to admission. Patient game to the [place] ED for evaluation of his worsening/ persistent symptoms and inability to walk. #History of Gastric Sleeve/Bypass in 2013 #Previous history of diabetes mellitus #Hyponatremia #Hypokalemia #Hypomagnesemia #Hypothyroidism #EtOH Depedence #Malnutrition #Morbid Obesity Patient underwent gastric sleeve/bypass in 2013 for which he reportedly went from 400 pounds to 185. He has been noncompliant with his diet which he attributes to 'loosing his teeth to diabetes'. He states food doesn't 'taste good' and has no appetite for most things. Patient reported drinking one bottle of wine per day. Patients multiple metabolic derrangements are most likely due to poor nutrition and oral intake. Endocrinology consults was placed; his levothyroxine was increased for concern of his elevated TSH. PT evaluation determined that patient would benefit from short term rehabilitation. Abdominal ultrasound identified ascites for which a GI consult was placed. -Telemetry -CIWA -Cymbalta 30mg PO Daily -Levothyroxine 100mcg PO Daily -Spironolactone 100mg PO Daily -Daily BEP, Mg -Replete Electrolytes PRN -GI consult -Endocrinology consult -Nutrition Consult #Accelerated Junctional Rhthym #History of Aortic Stenosis #Hypertension #Hyperlipidemia #Lower Extremity Pain/Swelling #Peripheral Vascular Disease Patient of Dr. Reddy. Patient reports placement of a stent in his right lower extremity and left lower extremity angioplast two weeks prior to admission. Patient of room designer Dr. Guerrero. -Elevate Legs -Aspirin 81mg PO Daily -Gabapentin 300mg PO TID -Vascular Surgery Consult -Cardiology Consult Pain Plan-Acetaminophen Diet-Heart Healthy Diet DVT PPx-Lovenox Code Status-DNR/DNI Problem List: 1. General weakness Pain Ratin Pain Location: Abdomen Pain Goal: Remain pain free Pain Plan: See assessment Tomorrow's Labs & Rationales: CBC/BEP
[2016-08-29 07:16] VITALS: BP 102/62
--- NOTE | 2016-08-29 07:29 | Discharge Summary ---
Visit Information Visit Dates Admission Date: 08/27/16 Discharge Date: 08/30/16 Hospital Course Course Attending Physician: KINGS BERNARD,SHALINI Primary Care Physician: JEREMY HANNA MD Consulting Request: 1 Consulting Specialty: Cardiology Consulting Request: 2 Consulting Specialty: Endocrinology Consulting Request: 3 Consulting Specialty: Gastroenterology Hospital Course: 66 y/o man with a PMH of HTN, HLP, PVD s/p R iliac stent placement, gastric bypass surgery (2013), chronic anemia presented to [facility] with c/o of generalized weakness, weakness of upper and lower extremities, inability to ambulate 1 week. Vitals on admission BP: 158/82, RR: 18, Pulse: 66, afebrile. Physical exam pertinent for neck taht was supple, no elevated JVP, 2+ carotid pulse. Cardiovascular exam revealed normal S1, S2, grade III/ holosystiolic murmur heard best at RSB. CTAB, abdominal exam was benign, with abdomen soft, NT , ND, with normal bwoel sounds in all four quadrants. Neuro exam revelaed strength 4/5 inall 4 extremities, otherwise CNII-XII grossly intactm, gait was not assessed. Examination of lower extremities revealed 2+ bilateral pedal edema with erythema on RLE extending from the ankle up to the knee; LLE - erythema was around mid-godinez. No discharge, there was a skin abrasion on the right godinez. Pulses were decreased bilaterally, and patient had a stage I decubitus sacral ulcer. Labs pertinent for lymphopenia WBC 3.8, macrocytic anemia with a hemoglobin 10.9 (baseline 11.0), platelets 151,000. Serum chemisteries pertinent for hyponatremia with Na:128, K: 2.9 and hypomagnesemia (1.5). LFTs WNL with AST 57 / AST 28, alkaline phosphatase 92, total bilirubin elevated to 2.5, first troponin < 0.01. Urinalysis revealed no pyuria, or urine leukocyte esterase. EKG revealed low voltage, with sinus bradycardia, and T wave flattening in pre- cordial leads. US Doppler: Normal triplex scan without evidence of deep venous thrombosis involving the lower extremities. He was admitted to telemetry and the following problems were addressed: #Generalized weakness and lethargy of unclear etiology He had a hsitory of fall at home and had a recent fall at home. He was evaluated by PT and recommendations were made for him to be discharged to rehab. #Hypokalemia with EKG changes There was concern that the patient may have had a junctional rhythm on admission. There was also T wave flattening most likely 2/2 hypokalemia. ACS was ruled out with trops and EKG that remained negative. He was aslo evaluated by garden implement mechanic Dr. Ronaldo Guerrero who deemed that it was sinus bradycardia with low atrial/sinus rhytm. #Hypomagnesemia, Hyponatremia Most likely 2/2 decraesed PO intake vs thyroid dysfunction. These were repleted accordingly. #Transaminitis This was thought to be most likely 2/2 aklcoholism. An abdominal ultrasound was done which showed ascites. Of note he was seen by Dr. Monique in . GI consult was obtained, who recommended OUTPATIENT f/u with dr. monique. He was also restarted on Aldactone 100mg daily. Ofnote his hepatitsi panel was negative. #Hypothyroidism Patient has a history of autoimmune thryoid disease. His TSH on admission was 19.5, with FT4 of 4.4. Endo was consulted. His levothryoxine was bumped up to 0.212mg. They also recommended getting a serum AM cortisol, given hypokalemia and concern for any adrenal insufficeincy. Serum cortisol was normal. he was advised to take levothyroxine 0.212 mg daily and follow-up with his data warehouse analyst within 1-2 weeks after discharge. He was also given script to check for TSH within 1 week and fax reports to PCP and data warehouse analyst. #EtOH Depedence He was placed on CIWA score. These ranged between 0-2. #BPH He was continued on Flomax0.4mg daily #Neuopathy He was continued in Gabapentin 300mg TID. #Chronic macrocytic anemia 2/2 folate deficiency. Of note patient ahs a history of gastric bypass surgery. Complications: None Allergies: Coded Allergies: NO KNOWN ALLERGIES (11/02/15) Significant Procedures: SERVICE DATE: 08/27/16-1619 EXAM TYPE: US - US-EXT BILAT VENOUS DOPPLER FINDINGS: Exam limited by body habitus. Patient is a bandage over the right groin region. Respiratory variation, normal compression and augmented flow are noted throughout the lower extremities. The visualized common femoral vein, superficial femoral vein, profunda femoral vein, popliteal vein and midcalf peroneal and posterior tibial venous segments show no evidence of deep venous thrombosis. Popliteal fossa cyst on the left measuring 4.5 x 1.0 x 2.6 cm. No popliteal cyst on the right. IMPRESSION: Normal triplex scan without evidence of deep venous thrombosis involving the lower extremities. SERVICE DATE: 08/28/16- EXAM TYPE: US - US-LIMITED ABDOMEN FINDINGS: PANCREAS: Not visualized secondary to overlying bowel gas. LIVER: The liver demonstrates increased echogenicity suggesting hepatic steatosis. No focal lesion or intrahepatic biliary duct dilatation. Perihepatic ascites is noted. GALLBLADDER: The patient is status post cholecystectomy. COMMON BILE DUCT: Not visualized. RIGHT KIDNEY: Normal. No hydronephrosis. No renal calculi or focal parenchymal lesions. The kidney measures 11.6 cm in maximum dimension. FREE FLUID: Moderate amount of ascites noted. IMPRESSION: Limited evaluation secondary to patient body habitus and attenuation from overlying bowel gas. The liver demonstrates increased echogenicity which can be seen with hepatic steatosis and/or underlying chronic liver disease. No biliary ductal dilatation. Moderate amount of ascites. SERVICE DATE: 08/28/16- EXAM TYPE: CARD - ECHOCARDIOGRAM FINDINGS Left Ventricle Normal size left ventricle. Mild concentric left ventricular hypertrophy. Normal left ventricular ejection fraction visually estimated at >65 %. No obvious regional wall motion abnormalities. Abnormal relaxation filling pattern of the left ventricle for age (stage 1 diastolic dysfunction). Right Ventricle The right ventricle is normal in size and function. Right Atrium The right atrium is normal in size. Left Atrium Mild to moderate left atrial dilatation. Mitral Valve Mild thickening/calcification of the mitral valve leaflets. Moderate mitral annular calcification. Mild mitral regurgitation. Aortic Valve Diffuse thickening of the aortic valve cusps with reduced excursion. Moderate aortic stenosis. Mild aortic regurgitation. Tricuspid Valve Structurally normal tricuspid valve. Mild tricuspid regurgitation. Right ventricular systolic pressure estimated to be within the normal range at 20-25 mmHg. Pulmonic Valve Structurally normal pulmonic valve. There is no pulmonic regurgitation. Pericardium Normal pericardium without effusion. No pleural effusion. Great Vessels Upper normal limits aortic root dimension. The aortic arch and great vessels are well seen and are normal. CONCLUSIONS Mild concentric left ventricular hypertrophy. Normal left ventricular ejection fraction visually estimated at >65 Abnormal relaxation filling pattern of the left ventricle for age (stage 1 diastolic dysfunction). Mild to moderate left atrial dilatation. Mild thickening/calcification of the mitral valve leaflets. Moderate mitral annular calcification. Mild mitral regurgitation. Diffuse thickening of the aortic valve cusps with reduced excursion. Moderate aortic stenosis. Mild aortic regurgitation. Right ventricular systolic pressure estimated to be within the normal range at 20-25 mmHg. Upper normal limits aortic root dimension. Compared to echocardiogram of 10/17/2015 the degree of aortic stenosis is slightly increased with a mean gradient of 22 mmHg, which was previously 19 mmHg, However the peak gradient is very similar at 37 mmHg versus 36 mmHg previously. Ronaldo Guerrero M.D. (Electronically Signed) Final Date: 28 August 2016 18:07 Disposition Summary Disposition Principal Diagnosis: Physical deconditioning Hypothryoidism Hyponatremia Hypokalemia Transaminitis Additional Diagnosis: Chronic anemia PVD HTN Obesity s/p gastric by-pass Moderate aortic stenosis Decubitus ulcers Discharge Disposition: SNF Discharge Instructions General Discharge Information Code Status: Do Not Resucitate/Intubat Patient's Diet: Heart healthy Patient's Activity: As tolerated Follow-Up Instructions/Appts: Please follow up with your primary care physican in one week. Please follow up with your garden implement mechanic in one week. Please follow up with your data warehouse analyst in one week. Medications at Discharge Discharge Medications: Stop taking the following medications: Levothyroxine Sodium (Levothyroxine Sodium) 100 MCG TABLET ORAL DAILY Qty = 90 Continue taking these medications: Gabapentin (Gabapentin) 300 MG CAPSULE 3 Capsule ORAL THREE TIMES DAILY Comments: LAST GIVEN 11/15/15 @ 0900 Trazodone HCl (Trazodone HCl) 50 MG TABLET 1-2 Tablet ORAL Every night as needed for SLEEP Qty = 60 Tamsulosin HCl (Tamsulosin HCl) 0.4 MG CAP.ER.24H 1 Capsule ORAL DAILY Qty = 30 Finasteride (Finasteride) 5 MG TABLET 1 Tablet ORAL DAILY Qty = 30 Spironolactone (Spironolactone) 100 MG TABLET 1 Tablet ORAL DAILY Qty = 30 Furosemide (Furosemide) 40 MG TABLET 1 Tablet ORAL DAILY Duloxetine HCl (Duloxetine HCl) 30 MG CAPSULE.DR 1 Capsule ORAL DAILY Qty = 30 Aspirin (Ecotrin*) 81 MG TABLET.DR 1 Tablet ORAL DAILY Start taking the following new medications: Folic Acid (Folic Acid) 1 MG TABLET 1 Milligram ORAL DAILY Qty = 30 No Refills Levothyroxine Sodium (Synthroid) 100 MCG TABLET 0.212 Milligram ORAL DAILY BEFORE BREAKFAST Qty = 30 No Refills Copies To: DEWAYNE BERNARD,RAF Hernandez; GILLES BERNARD,RONALDO Baird; YULI BERNARD,SHAKIRA Attending MD Review Statement Documenting Attending: KINGS BERNARD,SHALINI
--- NOTE | 2016-08-29 08:16 | PN- Endocrinology ---
Assessment/Plan Assessment: This 66-year-old male into the hospital with hypothyroidism and severe electrolyte disturbances. He has a history of autoimmune thyroid disease and also a gastric bypass surgery was done in 2014. The patient's potassium has been repleted. The patient feels better today. He is eating. His potassium is 2.8 today but he still has a low sodium of 128. Ultrasound of the abdomen reveals evidence of a moderate amount of ascites. Plan: Patient's continued low sodium could be secondary to his liver disease. In view of the ascites spironolactone is appropriate. He should check an a.m. cortisol level however. Suggest that in addition we check the patient's free T4 and TSH today. We should recheck his calcium albumin and magnesium. Suggest GI consult with regard to his liver disease. Objective Last 24 Hrs of Vital Signs/I&O Vital Signs Date Time Temp Pulse Resp B/P B/P Pulse O2 O2 Flow FiO2 Mean Ox Delivery Rate 08/29 0716 98.2 75 18 102/62 93 Room Air 08/29 0600 98.7 70 20 102/62 08/29 0000 64 20 100/60 08/28 2249 97.7 81 16 98/64 95 Room Air 08/28 2200 77 08/29 1999 76 08/28 1941 76 96/58 08/28 1800 08/28 1600 77 08/28 1450 97.4 82 20 90/62 97 Room Air 08/28 1337 106/60 08/28 1114 97.7 71 20 102/60 08/28 0900 97.7 71 20 102/60 95 Nasal 2.0L Cannula 08/28 0849 80 Intake & Output 08/29 1600 08/29 0800 08/29 0000 Intake Total 100 1410 Output Total 300 250 Balance -200 1160 Intake, IV 250 Intake, Oral 100 1160 Number 0 Bowel Movements Output, Urine 300 250 Vital Signs Date Time Temp Pulse Resp B/P B/P Pulse O2 O2 Flow FiO2 Mean Ox Delivery Rate 08/29 0716 98.2 75 18 102/62 93 Room Air 08/29 0600 98.7 70 20 102/62 / 0000 64 20 100/60 08/28 2249 97.7 81 16 98/64 95 Room Air 08/28 2200 77 08/29 1999 76 08/28 1941 76 96/58 08/28 1800 77 08/28 1600 77 08/28 1450 97.4 82 20 90/62 97 Room Air 08/28 1337 106/60 08/28 1114 97.7 71 20 102/60 08/28 0900 97.7 71 20 95 Nasal 2.0L Cannula 08/28 0849 80 Intake & Output 08/29 1600 08/29 0800 08/29 0000 Intake Total 100 1410 Output Total 300 250 Balance -200 1160 Intake, IV 250 Intake, Oral 100 1160 Number 0 Bowel Movements Output, Urine 300 250 Current Medications: Current Medications Sig/Trever Start time Last Medication Dose Route Stop Time Status Admin Acetaminophen 650 MG Q8P PRN 08/27 2300 AC 08/27 PO 2321 Aspirin Buffered 81 MG DAILY 08/28 1000 AC 08/28 PO 1336 Duloxetine HCl 30 MG DAILY 08/28 1000 AC 08/28 PO 1337 Enoxaparin Sodium 40 MG DAILY 08/28 1000 AC 08/28 SC 1336 Finasteride 5 MG DAILY 08/27 2102 AC 08/28 PO 1336 Folic Acid 1 MG DAILY 08/29 1000 AC PO Gabapentin 300 MG TID 08/27 2200 AC 08/28 PO 2137 Levothyroxine Sodium 0.212 MG DAILY AC 08/29 0700 AC 08/29 PO 0622 Levothyroxine Sodium 0.1 MG DAILY AC 08/28 0700 UT 08/28 PO 0644 Patient Medication 1 ED .STK-MED ONE 08/28 1403 DC Teaching ED 08/28 1404 Potassium Chloride 40 MEQ ONCE ONE 08/28 1200 DC 08/28 PO 08/28 1201 1336 Potassium Phosphate 15 mMol ONE ONE 08/28 0845 DC 08/28 Sodium Chloride 250 ML IV 08/28 1248 1021 Spironolactone 100 MG DAILY 08/28 1200 AC 08/28 PO 1337 Tamsulosin HCl 0.4 MG DAILY 08/27 2103 AC 08/28 PO 1337 Trazodone HCl 25 MG QPM PRN 08/27 211 08/28 PO 2137 Results Pertinent Lab/Shahbaz Results: Laboratory Tests 08/29 08/28 0615 1730 Chemistry Sodium (137 - 145 mmol/L) 128 L Potassium (3.5 - 5.1 mmol/L) 3.8 Chloride (98 - 107 mmol/L) 99 Carbon Dioxide (22 - 30 mmol/L) 25 Anion Gap (5 - 16) 4 L Iron (49 - 181 ug/dL) 55 TIBC (261 - 462 ug/dL) 173 L Ferritin (17.9 - 464 ng/mL) 479.0 H 25-OH Vitamin D Total (30 - 100 ng/ml) Pending
--- NOTE | 2016-08-29 08:22 | PN- Att Addend ---
Attending Addendum Attending Brief Note Patient seen and examined. Plan of care discussed with the medical team and the patient. Available lab work and radiology test reports were reviewed. Patient is currently awake and does not appear to be disoriented. He appears somewhat irritable. He denies any chest pain or difficulty breathing. Vital Signs Date Time Temp Pulse Resp B/P B/P Pulse O2 O2 Flow FiO2 Mean Ox Delivery Rate 08/29 0716 98.2 75 18 102/62 93 Room Air 08/29 0600 98.7 70 20 102/62 08/29 0000 64 20 100/60 08/28 2249 97.7 81 16 98/64 95 Room Air 08/28 2200 77 08/28 2000 76 08/28 1941 76 96/58 08/28 1800 77 08/28 1600 77 08/28 1450 97.4 82 20 90/62 97 Room Air 08/28 1337 106/60 08/28 1114 97.7 71 20 102/60 08/28 0900 97.7 71 20 102/60 95 Nasal 2.0L Cannula 08/28 0849 80 Intake & Output 08/29 1600 08/29 0800 08/29 0000 Intake Total 100 1410 Output Total 300 250 Balance -200 1160 Intake, IV 250 Intake, Oral 100 1160 Number 0 Bowel Movements Output, Urine 300 250 Exam: General: Patient awake alert oriented without any distress; no tremors are seen. CVS: S1 plus S2 without any murmur or gallops Chest: Few scattered crepitation without any wheeze. There is no respiratory distress. Abdomen: Soft nontender, bowel sound present, no guarding or rebound MANAGER LOSS PREVENTION: Awake alert oriented without any focal neuro deficit and follows command appropriately Extremities: 1-2+ bilateral edema and mild to moderate redness especially of the right leg at the anterior godinez area. Evidence of scratch elizondo from recent fall on the right godinez. no clubbing or cyanosis noted Laboratory Tests 08/29 08/28 0615 1730 Chemistry Sodium (137 - 145 mmol/L) 128 L Potassium (3.5 - 5.1 mmol/L) 3.8 Chloride (98 - 107 mmol/L) 99 Carbon Dioxide (22 - 30 mmol/L) 25 Anion Gap (5 - 16) 4 L Iron (49 - 181 ug/dL) 55 TIBC (261 - 462 ug/dL) 173 L Ferritin (17.9 - 464 ng/mL) 479.0 H 25-OH Vitamin D Total (30 - 100 ng/ml) Pending Ultrasound liver Limited evaluation secondary to patient body habitus and attenuation from overlying bowel gas. The liver demonstrates increased echogenicity which can be seen with hepatic steatosis and/or underlying chronic liver disease. No biliary ductal dilatation. Moderate amount of ascites. Echocardiogram Mild concentric left ventricular hypertrophy. Normal left ventricular ejection fraction visually estimated at >65 Abnormal relaxation filling pattern of the left ventricle for age (stage 1 diastolic dysfunction). Mild to moderate left atrial dilatation. Mild thickening/calcification of the mitral valve leaflets. Moderate mitral annular calcification. Mild mitral regurgitation. Diffuse thickening of the aortic valve cusps with reduced excursion. Moderate aortic stenosis. Mild aortic regurgitation. Right ventricular systolic pressure estimated to be within the normal range at 20-25 mmHg. Upper normal limits aortic root dimension. Compared to echocardiogram of 10/17/2015 the degree of aortic stenosis is slightly increased with a mean gradient of 22 mmHg, which was previously 19 mmHg, However the peak gradient is very similar at 37 mmHg versus 36 mmHg previously. Assessment * Generalized weakness and lethargy- without any clear etiology; patient has not been able to ambulate at home and has history of recent fall. He will likely need short-term rehabilitation * Suspected underlying liver cirrhosis * Ascites due to cirrhosis * Hepatic steatosis * Status post bariatric surgery * EKG changes with T-wave inversions and junctional rhythm likely due to hypokalemia and electrolyte abnormalities * History of alcohol abuse-patient has been sober for last 2 months * Abnormal LFTs- rule out underlying cirrhosis * Hypothyroidism * Lower extremity edema and redness likely due to venous stasis-ultrasound was negative for DVT * Chronic anemia- macrocytic; prostatitis could include alcohol use, liver cirrhosis, oral B12 and folic acid deficiency as a consequence of bariatric surgery Plan * Arrange for short-term rehabilitation; possible discharge tomorrow * Continue CIWA protocol * Replace potassium by mouth * Continue leg elevation; no need for antibiotic at this point * Continue Aldactone and start Lasix * Endoscopy report from March reviewed; at that time there was no evidence of varices * Check guaiac stool * Recheck CBC tomorrow * Check B12 and RBC folic acid * Follow-up thiamine and vitamin D levels which are currently pending * Prepare CMR and discharge paperwork for tomorrow
--- NOTE | 2016-08-29 10:51 | PN- Cardiology ---
Subjective Subjective: The patient is up in a chair today. He states he has been walking with physical therapy. He is feeling less weak. His last chemistries from yesterday afternoon showed a sodium of 128 and a potassium of 3.8. His thyroid medication was adjusted. There have been no arrhythmias noted. Objective Vital Signs and I&Os Vital Signs Date Time Temp Pulse Resp B/P B/P Pulse O2 O2 Flow FiO2 Mean Ox Delivery Rate 08/29 0935 106/62 08/29 0907 Room Air 2.0L 08/29 0828 74 08/29 0716 98.2 75 18 102/62 93 Room Air 08/29 0600 98.7 70 20 102/62 08/29 0000 64 20 100/60 08/28 2249 97.7 81 16 98/64 95 Room Air 08/28 2200 77 08/28 2000 76 08/28 1941 76 96/58 08/28 1800 77 08/28 1600 77 08/28 1450 97.4 82 20 90/62 97 Room Air 08/28 1337 106/60 08/28 1114 97.7 71 20 102/60 Intake & Output 08/29 1600 08/29 0800 08/29 0000 08/28 1600 08/28 0800 08/28 0000 Intake Total 100 1410 800 400 Output Total 300 250 400 Balance -200 1160 400 400 Intake, IV 250 200 Intake, Oral 100 1160 600 400 Number 0 Bowel Movements Output, Urine 300 250 400 Patient 250 lb 249 lb 285 lb Weight Weight Bee Lift Bee Lift Reported by Patient Measurement Method Physical Exam: He is in no distress HEENT exam is normal Chest is clear Heart is regular with a grade 3/6 systolic ejection murmur Extremities reveals some redness of his lower legs and 1-2+ edema Current Medications: Current Medications Sig/Trever Start time Last Medication Dose Route Stop Time Status Admin Acetaminophen 650 MG Q8P PRN 08/27 2300 AC 08/27 PO 2321 Aspirin Buffered 81 MG DAILY 08/28 1000 AC 08/29 PO 0935 Duloxetine HCl 30 MG DAILY 08/28 1000 AC 08/29 PO 0935 Enoxaparin Sodium 40 MG DAILY 08/28 1000 AC 08/29 SC 0934 Finasteride 5 MG DAILY 08/27 2102 AC 08/29 PO 0935 Folic Acid 1 MG DAILY 08/29 1000 AC 08/29 PO 0935 Furosemide 40 MG DAILY 08/29 1000 AC 08/29 PO 0940 Gabapentin 300 MG TID 08/27 2200 AC 08/29 PO 0934 Levothyroxine Sodium 0.212 MG DAILY AC 08/29 0700 AC 08/29 PO 0622 Levothyroxine Sodium 0.1 MG DAILY AC 08/28 0700 DC 08/28 PO 0644 Patient Medication 1 ED .STK-MED ONE 08/28 1403 DC Teaching ED 08/28 1404 Potassium Chloride 40 MEQ ONCE ONE 08/28 1200 DC 08/28 PO 08/28 1201 1336 Potassium Phosphate 15 mMol ONE ONE 08/28 0845 DC 08/28 Sodium Chloride 250 ML IV 08/28 1248 1021 Spironolactone 100 MG DAILY 08/28 1200 AC 08/29 PO 0934 Tamsulosin HCl 0.4 MG DAILY 08/27 2103 AC 08/29 PO 0935 Trazodone HCl 25 MG QPM PRN 08/27 2115 AC 08/28 PO 2137 Results Last 48 Hrs of Labs/Mics: Laboratory Tests 08/29/16 0615: Iron 55, TIBC 173 L, Ferritin 479.0 H, 25-OH Vitamin D Total 43.5 08/28/16 1730: Anion Gap 4 L 08/28/16 0611: Anion Gap 3 L, Estimated GFR > 60, BUN/Creatinine Ratio 15.0, Phosphorus 2.4 L , Triglycerides 93, Cholesterol 78, LDL Cholesterol, Calc 53 L, HDL Cholesterol 7 L, Cholesterol/HDL Ratio 11.1 H, PT 15.9 H, INR 1.52 H, CBC w Diff NO MAN DIFF REQ, RBC 2.60 L, MCV 109.8 H, MCH 36.9 H, RDW 18.7 H, MPV 8.0, Gran % 49.4, Lymphocytes % 39.1, Monocytes % 6.9, Eosinophils % 3.5, Basophils % 1.1, Absolute Granulocytes 1.6, Absolute Lymphocytes 1.3, Absolute Monocytes 0.2, Absolute Eosinophils 0.1, Absolute Basophils 0, PUBS MCHC 33.7 08/27/16 2323: Anion Gap 6, Estimated GFR > 60, BUN/Creatinine Ratio 18.3, Troponin I < 0.01, Ssl-M-Yunaufrxvtg Pept 481 H, TSH 19.500 H, Thyroxine (T4) 4.4 L 08/27/16 1735: Urinalysis LIGHT H, Urine Color GIANNA, Urine Clarity CLEAR, Urine pH 6.0, Ur Specific [place] 1.010, Urine Protein TRACE H, Urine Ketones TRACE H, Urine Nitrite NEG, Urine Bilirubin NEG@ICTO, Urine Urobilinogen >=8.0 H, Ur Leukocyte Esterase NEG, Ur Microscopic SEDIMENT EXAMINED, Urine RBC RARE, Urine WBC RARE, Ur Epithelial Cells OCCAS, Urine Bacteria RARE H, Hyaline Casts RARE H, Granular Casts RARE H, Urine Mucus RARE, Micro UA Comment , Urine Hemoglobin NEG, Urine Glucose NEG 08/27/16 1735: Urine Osmolality 458, Ur Random Creatinine 130.5, Ur Random Sodium 9 L, Ur Random Potassium 16.3, Fraction Sodium Excret 0.0 08/27/16 1646: Anion Gap 7, Estimated GFR > 60, BUN/Creatinine Ratio 18.3, Glucose 68, Serum Osmolality 282 L, Calcium 7.5 L, Magnesium 1.5 L, Total Bilirubin 2.5 H, AST 57, ALT 28, Alkaline Phosphatase 92, Troponin I < 0.01, Total Protein 5.9 L, Albumin 2.1 L, Globulin 3.8, Albumin/Globulin Ratio 0.6 L, Vitamin B12 > 1000 H, Folate 2.0 L 08/27/16 164: CBC w Diff NO MAN DIFF REQ, RBC 2.94 L, MCV 108.4 H, MCH 37.0 H, RDW 18.6 H, MPV 7.8, Gran % 65.3, Lymphocytes % 26.3, Monocytes % 5.8, Eosinophils % 1.6, Basophils % 1.0, Absolute Granulocytes 2.5, Absolute Lymphocytes 1.0 L, Absolute Monocytes 0.2, Absolute Eosinophils 0.1, Absolute Basophils 0, PUBS MCHC 34.1 Recent Imaging Studies: CONCLUSIONS Mild concentric left ventricular hypertrophy. Normal left ventricular ejection fraction visually estimated at >65 Abnormal relaxation filling pattern of the left ventricle for age (stage 1 diastolic dysfunction). Mild to moderate left atrial dilatation. Mild thickening/calcification of the mitral valve leaflets. Moderate mitral annular calcification. Mild mitral regurgitation. Diffuse thickening of the aortic valve cusps with reduced excursion. Moderate aortic stenosis. Mild aortic regurgitation. Right ventricular systolic pressure estimated to be within the normal range at 20-25 mmHg. Upper normal limits aortic root dimension. Compared to echocardiogram of 10/17/2015 the degree of aortic stenosis is slightly increased with a mean gradient of 22 mmHg, which was previously 19 mmHg, However the peak gradient is very similar at 37 mmHg versus 36 mmHg previously. Ronaldo Guerrero M.D. (Electronically Signed) Final Date: 28 August 2016 18:07 Assessment/Plan Assessment/Plan The patient is stable. He has not had any cardiac issues. His echocardiogram showed moderate aortic stenosis, slightly progressed from one year ago. This only requires further observation at this time and I told the patient that. I recommend another basic metabolic profile to make sure his potassium is still in the normal range and I would prefer it to be over 4. From a cardiac standpoint his telemetry can be discontinued if his electrolytes are acceptable. Continue telemetry? No
[2016-08-29] MEDS ORDERED: FOLIC ACID1 M1 PO ×2 (12:10→15:23)
[2016-08-29] MEDS ORDERED: SYNTHROID100 MCG PO ×2 (12:10→15:23)
[2016-08-29 14:47] VITALS: BP 110/70
--- NOTE | 2016-08-29 14:47 | NUR ---
WOUND CARE: REQUESTED BY NURSING STAFF TO EVLAUATE PT FOR SKIN ALTERATIONS PRESENT ON ADMISSION - HX OBTAINED FROM CHART REVIEW AND PT - PT NOTED WITH RESOLVING CELLULITIS BLE - LEFT BUTTOCKS NOTED WITH A STAGE 2 PRESSURE INJURY 0.2 X 0.3 CM CLEAN PINK DERMAL FILL - RIGHT BUTTOCKS AREA OF DTI 5X5 CM PURPLE HUE INTACT SKIN - COCCYX 1 X 0.8 CM EVOLVING DTI WITH SUPERFICIAL SKIN BREAKDOWN AT CENTER - NO DRNG NOTED - PT ABLE TO REPOSITION WITH MINIMAL ASSISTANCE RECOMMEDNATION: APPLY MOISTURE BARRIER QS AND PRN - ENCOURAGE SIDELYING POSITION WIB - GROUP 2 MATTRESS
--- NOTE | 2016-08-29 15:24 | Patient Discharge Instructions ---
Discharge Instructions General Discharge Information Special Instructions: Taking folic acid daily. Your dose of levothyroxine has changed, start taking 212mcg per day. Continue all your previous medications. Follow up with your mule operator after discharge for further evaluation of your nutrition and belly swelling. Please f/u pcp after discharge in 1-2 weeks please f/u power plant operator one week after discharge. check tsh next week and fax reports to pcp and power plant operator Acute Coronary Syndrome Inclusion Criteria At DC or during hospital stay patient has or had the following: ACS DIAGNOSIS No Discharge Core Measures Meds if any: Prescribed or Continued at Discharge Meds if any: NOT Prescribed or Continued at Discharge Congestive Heart Failure Inclusion Criteria At DC or during hospital stay patient has or had the following: CHF DIAGNOSIS No Discharge Core Measures Meds if any: Prescribed or Continued at Discharge Meds if any: NOT Prescribed or Continued at Discharge Cerebrovascular accident Inclusion Criteria At DC or during hospital stay patient has or had the following: CVA/TIA Diagnosis No Discharge Core Measures Meds if any: Prescribed or Continued at Discharge Meds if any: NOT Prescribed or Continued at Discharge Venous thromboembolism Inclusion Criteria VTE Diagnosis No VTE Type NONE VTE Confirmed by (Test) NONE Discharge Core Measures - Per Current guidelines, there needs to be overlap - treatment for the first 5 days of Warfarin therapy. - If discharged on Warfarin prior to 5 days of - overlap therapy, the patient will need to be - assessed for post discharge needs including - *Post discharge parental anticoagulation - *Warfarin and/or parental anticoagulation education - *Follow up date to check INR post discharge At least 5 days overlap therapy as Inpatient No Meds if any: Prescribed or Continued at Discharge Note: Overlap Therapy is Warfarin and Anticoagulant Meds if any: NOT Prescribed or Continued at Discharge
--- NOTE | 2016-08-29 16:12 | Cons- Vascular Surgery ---
General Information and HPI Consulting Request Date of Consult: 08/28/16 Requested By: KINGS BERNARD,SHALINI History of Present Illness: 66-year-old male who was admitted with generalized weakness. He recently underwent iliac vein angioplasty and stenting by Dr. Reddy for chronic venous insufficiency. Patient has history of hypertension, hyperlipidemia, gastric bypass, and anemia. Vascular surgery was consulted regarding his venous insufficiency. Allergies/Medications Allergies: Coded Allergies: NO KNOWN ALLERGIES (11/02/15) Home Med List: Aspirin (Ecotrin*) 81 MG TABLET.DR 1 TAB PO DAILY HEART/BLOOD (Reported) Duloxetine HCl 30 MG CAPSULE.DR 1 CAP PO DAILY MENTAL HEALTH (Reported) Finasteride 5 MG TABLET 1 TAB PO DAILY (Reported) Folic Acid 1 MG TABLET 1 MG PO DAILY SUPPLEMENT Furosemide 40 MG TABLET 1 TAB PO DAILY SWELLING (Reported) Gabapentin 300 MG CAPSULE 3 CAP PO TID NERVE PAIN (Reported) Levothyroxine Sodium 100 MCG TABLET 1 TAB PO DAILY THYROID (Reported) Levothyroxine Sodium (Synthroid) 100 MCG TABLET 0.212 MG PO DAILY AC HYPOTHYROIDISM Spironolactone 100 MG TABLET 1 TAB PO DAILY DIURETIC (Reported) Tamsulosin HCl 0.4 MG CAP.ER.24H 1 CAP PO DAILY (Reported) Trazodone HCl 50 MG TABLET 1-2 TAB PO QPM PRN SLEEP (Reported) Past History Medical History Neurological: NONE EENT: NONE Cardiovascular: NONE Respiratory: NONE Gastrointestinal: HX CHOLECYSTECTOMY Hepatic: jaundice Renal: NONE Musculoskeletal: disk herniation, osteoarthritis Psychiatric: NONE Endocrine: NONE Blood Disorders: anemia Cancer(s): NONE ANESTHESIA RESIDENT/Reproductive: NONE Other Medical Hx: #1 diabetes (resolved post gastric bypass); hypothyroid, hypertension, obstructive sleep apnea, 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 nonalcoholic fatty liver, history of gastrointestinal tract bypass 10/2013, diverticulosis coli. Surgical History Pertinent Surgical History: LEFT ROTATOR CUFF GASTRIC BYPASS, CHOLECYSTECTOMY Family History Relations & Conditions If Any: FATHER FH: myocardial infarction Psychosocial History Services at Home: None Smoking Status: Never Smoked ETOH Use: denies use Illicit Drug Use: denies illicit drug use Functional Ability ADLs Independent: dressing, eating, toileting, bathing. Ambulation: walker IADLs Needs Assist: food prep, transportation, medication admin. Unknown: shopping, housework, finances, telephone. Review of Systems Review of Systems: patient denies headache, dizziness, cough, palpitation, diarrhea or constipation Exam & Diagnostic Data Vital Signs and I&O Vital Signs Date Time Temp Pulse Resp B/P B/P Pulse O2 O2 Flow FiO2 Mean Ox Delivery Rate 08/29 1447 98.1 78 20 110/70 94 Room Air 08/29 1430 80 08/29 0935 106/62 08/29 0907 Room Air 2.0L 08/29 0828 74 08/29 0716 98.2 75 18 102/62 93 Room Air 08/29 0600 98.7 70 20 102/62 08/29 0000 64 20 100/60 08/28 2249 97.7 81 16 98/64 95 Room Air 08/28 2200 77 08/28 2000 76 08/28 1941 76 96/58 08/28 1800 77 Intake & Output 08/29 1600 08/29 0800 08/29 0000 08/28 1600 08/28 0800 08/28 0000 Intake Total 500 537 7714 800 400 Output Total 650 300 250 400 Balance -250 -200 1160 400 400 Intake, IV 250 200 Intake, Oral 632 243 6514 600 400 Number 0 Bowel Movements Output, Urine 650 300 250 400 Patient 249 lb 249 lb 285 lb Weight Weight Bee Lift Bee Lift Reported by Patient Measurement Method Physical Exam: patient is alert and oriented 3 Cardiovascular: Regular rate and rhythm Lungs: Clear to auscultation bilaterally Abdomen: Soft, nontender and nondistended Extremities: Bilateral feet are warm and pink. There is skin discoloration of bilateral legs consistent with venous stasis changes. There are no ulcers Assessment/Plan Assessment/Plan 66-year-old man with venous hypertension and venous stasis skin changes who is status post iliac vein stenting presented with generalized weakness. From the vascular surgery standpoint, there is no dimension or other diagnostic studies needed. Recommendation would be to place patient's legs in compression wraps and leg elevation. Consult Acknowledgment - Thank you for your consult request. Attending MD Review Statement Attending Statement Attending MD Statement: examined this patient, discuss w/resident/PA/HOSTESS PARTY SALES REPRESENTATIVE
[2016-08-29 21:30] VITALS: BP 104/68
[2016-08-30 07:43] VITALS: BP 110/62
[2016-08-30 08:00] VITALS: BP 110/62
[2016-08-30 08:00] LABS: ABSOLUTE BASOPHIL COUNT 0 /CUMM (0.0-0.2); ABSOLUTE EOSINOPHIL COUNT 0.1 /CUMM (0.0-0.7); ABSOLUTE GRANULOCYTE CT 1.2 /CUMM (1.4-6.5); ABSOLUTE LYMPH COUNT 1.5 /CUMM (1.2-3.4); ABSOLUTE MONOCYTE COUNT 0.3 /CUMM (0.10-0.60); BASOPHIL % 1.3 % (0.0-2.0); EOSINOPHIL % 4.2 % (0-5); GRANULOCYTE % 37.5 % (42.2-75.2); HEMATOCRIT 25.9 % (42-52); MEAN CORPUSCULAR HGB 36.8 PG (27.0-31.0); MEAN CORPUSCULAR HGB CONC 33.7 G/DL (33.0-37.0); MEAN CORPUSCULAR VOLUME 109.3 FL (80.0-94.0); MEAN PLATELET VOLUME 7.6 FL (7.4-10.4); PLATELET COUNT 163 /CUMM (130-400); RBC DISTRIBUTION WIDTH 18.8 % (11.5-14.5); RED BLOOD CELL CT 2.37 /CUMM (4.70-6.10); WHITE BLOOD CELL COUNT 3.2 /CUMM (4.8-10.8)
--- NOTE | 2016-08-30 08:38 | PN- Housestaff ---
Subjective Follow-up For: Generalized Weakness History of Gastric Sleeve/Bypass Hyponatremia Hypokalemia Hypomagnesemia Hypothyroidism Lower extremity swelling Review of Systems Constitutional: Denies: no symptoms. Objective Last 24 Hrs of Vital Signs/I&O Vital Signs Date Time Temp Pulse Resp B/P B/P Pulse O2 O2 Flow FiO2 Mean Ox Delivery Rate 08/30 1000 97.9 70 20 110/62 / 0952 70 110/62 / 0800 Room Air 08/30 0800 97.9 70 20 110/62 / 0743 97.9 70 20 110/62 95 Room Air 07/ 0000 Room Air 08/29 2130 98.0 80 20 104/68 94 Room Air 08/29 1447 98.1 78 20 110/70 94 Room Air 08/29 1430 80 Intake & Output 08/30 1600 08/30 0800 08/30 0000 Intake Total 120 350 Output Total 600 150 Balance -480 200 Intake, Oral 120 350 Number 0 Bowel Movements Output, Urine 600 150 Patient 248 lb Weight Weight Bee Lift Measurement Method Physical Exam General Appearance: Alert, Oriented X3, Cooperative, No Acute Distress Cardiovascular: Normal S1, Normal S2 Lungs: Clear to Auscultation Current Medications: Current Medications Sig/Trever Start time Last Medication Dose Route Stop Time Status Admin Acetaminophen 650 MG Q8P PRN 08/27 2300 AC 08/27 PO 2321 Aspirin Buffered 81 MG DAILY 08/28 1000 AC 08/30 PO 0952 Duloxetine HCl 30 MG DAILY 08/28 1000 AC 08/30 PO 0952 Enoxaparin Sodium 40 MG DAILY 08/28 1000 AC 08/30 SC 0954 Finasteride 5 MG DAILY 08/27 2102 AC 08/30 PO 0953 Folic Acid 1 MG DAILY 08/29 1000 AC 08/30 PO 0953 Furosemide 40 MG DAILY 08/29 1000 AC 08/30 PO 0953 Gabapentin 900 MG TID 08/29 1600 AC 08/30 PO 0953 Levothyroxine Sodium 0.212 MG DAILY AC 08/29 0700 AC 08/30 PO 0602 Patient Medication 1 ED .STK-MED ONE 08/29 1428 DC Teaching ED 08/29 1429 Ramelteon 8 MG ONCE ONE 08/30 0030 DC 08/30 PO 08/30 0031 0343 Spironolactone 100 MG DAILY 08/28 1200 AC 08/30 PO 0951 Tamsulosin HCl 0.4 MG DAILY 08/27 2102 AC 08/30 PO 0952 Trazodone HCl 25 MG QPM PRN 08/27 2114 AC 08/29 PO 2150 Last 24 Hrs of Lab/Shahbaz Results Last 24 Hrs of Labs/Mics: Laboratory Tests 08/30/16 0645: Anion Gap 4 L, Estimated GFR > 60, BUN/Creatinine Ratio 10.0, Calcium 7.3 L, Magnesium 1.9, Albumin 1.7 L, Cortisol AM Sample 9.6, CBC w Diff NO MAN DIFF REQ, RBC 2.37 L, MCV 109.3 H, MCH 36.8 H, RDW 18.8 H, MPV 7.6, Gran % 37.5 L, Lymphocytes % 47.1, Monocytes % 9.9 H, Eosinophils % 4.2, Basophils % 1.3, Absolute Granulocytes 1.2 L, Absolute Lymphocytes 1.5, Absolute Monocytes 0.3, Absolute Eosinophils 0.1, Absolute Basophils 0, PUBS MCHC 33.7 08/29/16 1225: RBC Folate Pending 08/29/16 1145: Whole Bld Vitamin B1 Pending, Serum Copper Pending, Zinc Pending Orders Stool Guaiac Testing: Unable to obtain a stool sample. Assessment/Plan Assessment: Mr Vance is a 66 yo M with PMH of hypertension, hyperlipidemia, Gastric Sleeve/ Bypass in 2013, and EtOH dependence seen for evaluation of progressively worsening generalized weakness and lower extremity swelling pain/swelling. Patient reports feeling this way for many months. Recently he had a RLE stent and LLE angioplasty by his vascular surgery Dr. Reddy two weeks prior to admission. Patient game to the [facility] ED for evaluation of his worsening/ persistent symptoms and inability to walk. #History of Gastric Sleeve/Bypass in 2013 #Previous history of diabetes mellitus #Hyponatremia #Hypokalemia #Hypomagnesemia #Hypothyroidism #EtOH Depedence #Malnutrition #Morbid Obesity * Telemetry * CIWA * Cymbalta 30mg PO Daily * Levothyroxine 212mcg PO Daily * Spironolactone 100mg PO Daily * F/u with GI as an outpatient for anemia * Endocrinology consulted * Nutrition Consulted * Planning discharge to [facility] #Accelerated Junctional Rhthym #History of Aortic Stenosis #Hypertension #Hyperlipidemia #Lower Extremity Pain/Swelling #Peripheral Vascular Disease Patient of Dr. Reddy. Patient reports placement of a stent in his right lower extremity and left lower extremity angioplast two weeks prior to admission. Patient of geriatric aide Dr. Guerrero. -Elevate Legs -Aspirin 81mg PO Daily -Gabapentin 300mg PO TID -Vascular Surgery Consult -Cardiology Consult Pain Plan-Acetaminophen Diet-Heart Healthy Diet DVT PPx-Lovenox Code Status-DNR/DNI Problem List: 1. HTN (hypertension) Pain Ratin Pain Location: N/A Pain Goal: Remain pain free Pain Plan: N/A Tomorrow's Labs & Rationales: None Consulting Request: Consulting Specialty: Gastroenterology
[2016-08-30 10:00] VITALS: BP 110/62
--- NOTE | 2016-08-30 10:45 | PN- Att Addend ---
Attending Addendum Attending Brief Note Attending Addendum Attending Brief Note Patient seen and examined. Plan of care discussed with the medical team and the patient. Available lab work and radiology test reports were reviewed. Patient is currently awake and does not appear to be disoriented. He appears somewhat irritable. He denies any chest pain or difficulty breathing. Vital Signs Date Time Temp Pulse Resp B/P B/P Pulse O2 O2 Flow FiO2 Mean Ox Delivery Rate 08/30 0901 59 140/60 08/30 0800 Room Air 08/30 0743 98.7 59 18 140/60 96 Room Air 08/29 2133 55 120/50 08/29 2132 55 120/50 08/29 1500 122/60 08/29 1447 98.0 63 18 144/68 97 Room Air Intake & Output 08/30 1600 08/30 0808/30 0000 Intake Total 120 300 Output Total 700 450 Balance -580 -150 Intake, Oral 120 300 Number 1 2 Bowel Movements Output, Urine 700 450 Exam: General: Patient awake alert oriented without any distress; no tremors are seen. CVS: S1 plus S2 without any murmur or gallops Chest: Few scattered crepitation without any wheeze. There is no respiratory distress. Abdomen: Soft nontender, bowel sound present, no guarding or rebound SECURITY CONSULTANT: Awake alert oriented without any focal neuro deficit and follows command appropriately Extremities: 1-2+ bilateral edema and mild to moderate redness especially of the right leg at the anterior godinez area. Evidence of scratch elizondo from recent fall on the right godinez. no clubbing or cyanosis noted No no labs done today Assessment * Generalized weakness and lethargy- without any clear etiology; patient has not been able to ambulate at home and has history of recent fall. He will likely need short-term rehabilitation * Suspected underlying liver cirrhosis * Ascites due to cirrhosis * Hepatic steatosis * Status post bariatric surgery with possible Nilsa and nutritional deficiencies. His albumin is noted to be low * EKG changes with T-wave inversions and junctional rhythm likely due to hypokalemia and electrolyte abnormalities * History of alcohol abuse-patient has been sober for last 2 months * Abnormal LFTs- rule out underlying cirrhosis * Hypothyroidism * Lower extremity edema and redness likely due to venous stasis-ultrasound was negative for DVT * Chronic anemia- macrocytic; prostatitis could include alcohol use, liver cirrhosis, oral B12 and folic acid deficiency as a consequence of bariatric surgery Plan * Discharge to short-term rehabilitation today * Continue leg elevation; no need for antibiotic at this point * Continue Aldactone and Lasix * Endoscopy report from March reviewed; at that time there was no evidence of varices * Check guaiac stool; if positive patient should get iron with his meals * Follow-up thiamine and RBC folic acid which are currently pending * Patient should follow with Dr. Monique for his liver cirrhosis. I discussed this with the patient and he verbalizes understanding.
[2016-08-30 12:00] VITALS: BP 106/76
[2016-08-30 12:47] VITALS: BP 102/60
[2016-08-30] MEDS ORDERED: SYNTHROID100 MCG PO (12:53)
[2016-08-30 14:00] VITALS: BP 106/76
--- NOTE | 2016-08-30 14:16 | PN- Endocrinology ---
Assessment/Plan Assessment: 66-year-old male was admitted into the hospital with hypothyroidism and severe electrolyte disturbances. He has a history of autoimmune thyroid disease, DM type 2, underwent gastric procedure in 2013 and lost significant amount of weight; and antidiabetc medications were discontinued after he lost weight. Ultrasound of the abdomen reveals evidence of a moderate amount of ascites secondary to cirrhosis. He was drinking ETOH. He was supposed to be on Levothyroxine 100 mcg daily at home, but he wasn't compliance with thyroid medication prior to admission. On 08/27/2016, TSH 19.5 and TT4 4.4. He was put on Levothyroxine 212 mcg daily in hospital. Repeat TFT done on 08/29/2016 showed TSH 13.3 and free T4 1.15. As per team, patient is going to be discharged to rehabilitation today. Plan: 1. Hypothyroidism: as his free T4 is in the normal range now; however, the correction of hypothyroidism is slightly too fast. Therefore, I will recommend lowering Levothyroxine to 125 mcg daily and repeating TSH and free T4 next week to look for a trend. 2. Hx of DM type 2 prior to gastric procedure-- he is now on diet control. I will recommend checking HbA1c. 3. hyponatremia-- ? hypothyroidism and cirrhosis monitor electrolytes next week. 4. f/u in office after discharged. Subjective Subjective: He feels well this morning and he is going to be discharged to rehabilitation today Objective Last 24 Hrs of Vital Signs/I&O Vital Signs Date Time Temp Pulse Resp B/P B/P Pulse O2 O2 Flow FiO2 Mean Ox Delivery Rate 08/30 1247 97.7 71 20 102/60 07 1200 97.5 74 18 106/76 08/30 1000 97.9 70 20 110/62 07/ 0952 70 110/62 07/ 0800 Room Air 08/30 0800 97.9 70 20 110/62 / 0743 97.9 70 20 110/62 95 Room Air 07/ 0000 Room Air 08/29 2130 98.0 80 20 104/68 94 Room Air 08/29 1447 98.1 78 20 110/70 94 Room Air 08/29 1430 80 Intake & Output / 1600 07/01 0800 07/ 0000 Intake Total 120 350 Output Total 600 150 Balance -480 200 Intake, Oral 120 350 Number 0 Bowel Movements Output, Urine 600 150 Patient 248 lb Weight Weight Bee Lift Measurement Method Results Pertinent Lab/Shahbaz Results: Laboratory Tests 08/30 0645 Chemistry Sodium (137 - 145 mmol/L) 128 L Potassium (3.5 - 5.1 mmol/L) 3.5 Chloride (98 - 107 mmol/L) 99 Carbon Dioxide (22 - 30 mmol/L) 25 Anion Gap (5 - 16) 4 L BUN (9 - 20 mg/dL) 7 L Creatinine (0.7 - 1.2 mg/dL) 0.7 Estimated GFR (>60 ml/min) > 60 BUN/Creatinine Ratio (7 - 25 %) 10.0 Calcium (8.4 - 10.2 mg/dL) 7.3 L Magnesium (1.6 - 2.3 mg/dL) 1.9 Albumin (3.5 - 5.0 g/dL) 1.7 L Cortisol AM Sample (4.46 - 22.7 ug/dL) 9.6 Hematology CBC w Diff NO MAN DIFF REQ WBC (4.8 - 10.8 /CUMM) 3.2 L RBC (4.70 - 6.10 /CUMM) 2.37 L Hgb (14.0 - 18.0 G/DL) 8.7 L Hct (42 - 52 %) 25.9 L MCV (80.0 - 94.0 FL) 109.3 H MCH (27.0 - 31.0 PG) 36.8 H RDW (11.5 - 14.5 %) 18.8 H Plt Count (130 - 400 /CUMM) 163 MPV (7.4 - 10.4 FL) 7.6 Gran % (42.2 - 75.2 %) 37.5 L Lymphocytes % (20.5 - 51.1 %) 47.1 Monocytes % (1.7 - 9.3 %) 9.9 H Eosinophils % (0 - 5 %) 4.2 Basophils % (0.0 - 2.0 %) 1.3 Absolute Granulocytes (1.4 - 6.5 /CUMM) 1.2 L Absolute Lymphocytes (1.2 - 3.4 /CUMM) 1.5 Absolute Monocytes (0.10 - 0.60 /CUMM) 0.3 Absolute Eosinophils (0.0 - 0.7 /CUMM) 0.1 Absolute Basophils (0.0 - 0.2 /CUMM) 0 PUBS MCHC (33.0 - 37.0 G/DL) 33.7
== END 2016-08-30 16:08 | DRG 641 ==
LOC: ERH 15:47 → ERHI 18:59 → 1NO 18:59 → ENRESERV 20:21 → ENTRNSPT 20:31 → 1NO 20:39 → CMPTRNSPT 20:59 → 1NO 22:36 → ENPENDDIS 08-30 12:03 → 1NO 08-30 16:08
PROVIDERS: Internal Medicine; Internal Medicine Interventional Cardiology; Physician Assistant; ADMIT Internal Medicine
DX: E87.6 Hypokalemia (principal); L89.151 Pressure ulcer of sacral region, stage 1; K70.31 Alcoholic cirrhosis of liver with ascites; E83.42 Hypomagnesemia; E44.1 Mild protein-calorie malnutrition; K75.81 Nonalcoholic steatohepatitis (NASH); E66.01 Morbid (severe) obesity due to excess calories; E87.1 Hypo-osmolality and hyponatremia; I10 Essential (primary) hypertension; E78.5 Hyperlipidemia, unspecified; I73.9 Peripheral vascular disease, unspecified; Z95.9 Presence of cardiac and vascular implant and graft, unspecified; Z98.84 Bariatric surgery status; R01.1 Cardiac murmur, unspecified; R00.1 Bradycardia, unspecified; E03.9 Hypothyroidism, unspecified; F10.20 Alcohol dependence, uncomplicated; N40.0 Benign prostatic hyperplasia without lower urinary tract symptoms; G62.9 Polyneuropathy, unspecified; D53.9 Nutritional anemia, unspecified; I35.0 Nonrheumatic aortic (valve) stenosis; G47.33 Obstructive sleep apnea (adult) (pediatric); Z96.651 Presence of right artificial knee joint; Z66 Do not resuscitate; Z68.39 Body mass index [BMI] 39.0-39.9, adult; M19.90 Unspecified osteoarthritis, unspecified site; E06.3 Autoimmune thyroiditis; E83.51 Hypocalcemia
CPT/HCPCS: 1NSP; 83516; 83520; 84133; 84300; 86376; 36415; 81001; 82436; 82570; 87086; 93005; 93010; 93306; 93970; 96374; 97110-GO; 97116-GO; 97161-GP; 97530-GO; J1650; J3490; J7040